=== PATIENT | female | born 1970 | race Caucasian/White ===

== ENCOUNTER → 2016-09-10 | Outpatient (CLI) | payer BC ==
[~2016-09-10] MED LIST: ALPR.25T; ALPR1T; ALPR1T PO; DESV100T PO; DVL500TEC; EST.1TD TOP; HYDR-34 PO; IBP600T1 PO; LEVO750T6 PO; LURA40TA PO; LVT.025T PO; LVT.112T; MELA1TAB20 PO; METR500T PO; MTF500T PO; MULT-608; OMG1KC; ONDA8TAB9 PO; SMT80CT PO
--- NOTE | 2016-09-11 15:44 | Diagnostic Imaging Report ---
Bilateral screening mammogram 2D views with tomosynthesis. The current study was also evaluated with a Computer Aided Detection (CAD) system. INDICATION: Screening. No current complaints stated on the questionnaire. COMPARISON: 02/23/15. FINDINGS: The breasts are composed of heterogeneously dense parenchyma which may decrease mammographic sensitivity. No mass, architectural distortion or suspicious cluster of calcification seen. Allowing for technique and positional differences, no suspicious change is seen. IMPRESSION: No significant change. ACR BI-RADS Category 2: Benign findings. Result letter will be mailed to the patient. Note: At least 10% of breast cancer is not imaged by mammography. Dictated by: Dictated on workstation # [id number]
== END ==
LOC: RAD 10:42
PROVIDERS: ATTEND Obstetrics & Gynecology
DX: Z12.31 Encounter for screening mammogram for malignant neoplasm of breast (principal)
CPT/HCPCS: 77067

== ENCOUNTER → 2017-09-09 | Outpatient (CLI) | payer BC ==
--- NOTE | 2017-09-09 12:16 | Diagnostic Imaging Report ---
PROCEDURE: US Gallbladder. TECHNIQUE: Multiple real-time grayscale images were obtained over the right upper quadrant in various projections. INDICATION: Dyspepsia. COMPARISON: None. FINDINGS: There is diffuse hepatic steatosis. No focal hepatic mass is seen. There is no biliary dilatation. The common bile duct measures about 4 mm. The gallbladder appears unremarkable. The pancreas is not well seen. The right kidney measures about 12 cm in length and appears unremarkable without obstructive change. The inferior pole however is somewhat obscured and not well visualized. There is no ascites or sonographic Davenport's sign. IMPRESSION: 1. Diffuse hepatic steatosis. 2. No additional abnormality is seen. The pancreas and inferior pole of the right kidney are not well seen. Dictated by: Dictated on workstation # [id number]
== END ==
LOC: RAD 10:02
PROVIDERS: ATTEND Nurse Practitioner Family
DX: K76.0 Fatty (change of) liver, not elsewhere classified (principal)
CPT/HCPCS: 76705

== ENCOUNTER → 2018-01-22 | Outpatient (CLI) | payer BC ==
--- NOTE | 2018-01-22 19:40 | Diagnostic Imaging Report ---
INDICATION: Routine screening. Comparison is made with prior mammograms from 09/10/2016 and 02/23/2015. 2-D and 3-D bilateral screening mammography was performed with computer-aided detection (CAD) system. FINDINGS: Both breasts are heterogeneously dense, limiting the sensitivity of mammography. The parenchymal pattern is stable. No mass or malignant-appearing microcalcifications are seen. The axillae are unremarkable. IMPRESSION: No mammographic features suspicious for malignancy are identified. ACR BI-RADS Category 1: Negative. Result letter will be mailed to the patient. Note: At least 10% of breast cancer is not imaged by mammography. Dictated on workstation # [id number]
== END ==
LOC: RAD 10:45
PROVIDERS: ATTEND Obstetrics & Gynecology
DX: Z12.31 Encounter for screening mammogram for malignant neoplasm of breast (principal)
CPT/HCPCS: 77067

== ENCOUNTER 2019-06-20 05:40 | Outpatient (CLI) | payer BC ==
[~2019-06-20] VITALS: Ht 162.6 cm; Wt 79.5 kg
[2019-06-20] MEDS ORDERED: LEVO50TA6 PO (11:33)
[2019-06-20] MEDS ORDERED: ESTR-44 TD (11:36)
[2019-06-20] MEDS ORDERED: ESCI20TA45 PO (11:36)
[2019-06-20] MEDS ORDERED: NEBI5TAB8 PO (11:36)
[2019-06-20] MEDS ORDERED: LITH600C PO (11:36)
[2019-06-20] MEDS ORDERED: CETI10TA21 PO (11:36)
[2019-06-20] MEDS ORDERED: TRZ50T PO (11:36)
== END 2019-06-20 16:14 ==
LOC: PREOP 05:40
PROVIDERS: ATTEND Internal Medicine
DX: Z01.818 Encounter for other preprocedural examination (principal); Z11.59 Encounter for screening for other viral diseases
CPT/HCPCS: 87635

== ENCOUNTER 2019-06-24 06:57 | Day surgery (SDC) | payer BC ==
--- NOTE | 2019-05-02 01:40 | HISTORY AND PHYSICAL ---
DATE OF SERVICE: COLONOSCOPY HISTORY AND PHYSICAL HISTORY OF PRESENT ILLNESS: The patient is a 48-year-old white female referred by Dr. Amy Alvares for screening colonoscopy. She reports positive family history on the maternal side with colon cancer, index case being a grandfather diagnosed in his late 50s and an uncle diagnosed at the age of 70. She reports a longstanding history of predominant diarrhea with bouts of constipation for which IBS has been diagnosed. She rarely takes some Bentyl and has been on no other medication. She also reports that she is lactose intolerance and she does have more bloating with gluten- based foods. She has noted no bright red blood per rectum or melena. Denies any change in weight with intermittent left lower quadrant abdominal pain, relieved with defecation. During the diarrhea phase she will have some urgency and 3 to 5 loose stools, more often in the morning. She has no nocturnal diarrhea. PAST MEDICAL HISTORY: Type 2 diabetes, Tomy's hypothyroidism, hypertension and depression. She reports her depression is in remission. PAST SURGICAL HISTORY: Significant for a right thyroidectomy for benign reasons 10 years ago, tonsillectomy and adenoidectomy as a child. She has had ear tubes and a right tympanoplasty in the past and in 2013 had transvaginal hysterectomy and ovaries were left. 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 She has rare alcohol usage. She has no past cigarette smoking history, but does vape. REVIEW OF SYSTEMS: CONSTITUTIONAL: The patient denies night sweats, chills, fever or change in weight. GASTROINTESTINAL: As noted in the HPI. PULMONARY: She denies any wheezing, cough or shortness of breath. Denies dyspnea on exertion. She denies cough or chest pain. PHYSICAL EXAMINATION: GENERAL: Reveals a pleasant white female in no acute distress. VITAL SIGNS: Blood pressure 128/76, heart rate 72 and regular. HEENT: Unremarkable. Mallampati 2 oropharyngeal configuration. CHEST: Clear to auscultation. CARDIOVASCULAR: Revealed a regular rate and rhythm without murmur, S3 or S4. ABDOMEN: Soft, supple without mass or organomegaly and mild left lower quadrant discomfort to palpation was noted without rebound or guarding. No evidence for distention was noted. The abdomen was soft. Bowel sounds positive. No bruits noted. EXTREMITIES: Reveal no cyanosis, clubbing or edema. ASSESSMENT AND PLAN: The patient will be set up for screening colonoscopy due to history of IBS and likely increase sensitivity. We will perform the test under Diprivan based anesthesia after discussion with the patient. She was concerned about the prep after discussion and so we will have her take Zofran 4 mg half an hour before each split dose. She was advised to abstain from intermittent ibuprofen that she utilizes for at least 48 hours prior to the procedure. She does not take any form of aspirin. Prep instructions were given and questions were answered. I thank you for the referral of this pleasant lady. I set up for colonoscopy on 05/13/2019. Job ID: [id number] DocumentID: [id number] Dictated Date: 04/28/2019 14:31:00 Applications Programmer Analyst Date: 04/28/2019 14:48:54 Dictated By: LOUISE PIKE MD
--- NOTE | 2019-06-23 16:49 | HISTORY AND PHYSICAL ---
DATE OF SERVICE: COLONOSCOPY HISTORY AND PHYSICAL The patient was initially seen on the , but screening colonoscopy her first was put off due to COVID pandemic. This is a followup H and P. There have been no changes in her health. She is undergoing screening colonoscopy at the age of 49 due to strong family history for colon cancer with 2 second-degree relatives with early colon cancer in their early 50's. She has had no bowel habit change and has no history of cardiovascular or pulmonary disease. PHYSICAL EXAMINATION: GENERAL: Reveals a well-appearing white female in no acute distress. CHEST: Clear. VITAL SIGNS: Blood pressure 128/74. CARDIOVASCULAR: Regular rate and rhythm without murmur, S3 or S4. ASSESSMENT AND PLAN: The patient is set up for screening colonoscopy on 06/24/2019. She already had prep instructions and has been on a clear liquid diet today. There are no contraindications proceeding with planned screening colonoscopy. Job ID: [id number] DocumentID: [id number] Dictated Date: 06/23/2019 16:08:22 Freight Inspector Date: 06/23/2019 16:48:24 Dictated By: LOUISE PIKE MD MTDD
[~2019-06-24 06:57] MED LIST changes: +CETI10TA21 PO; +ESCI20TA45 PO; +ESTR-44 TD; +LEVO50TA6 PO; +LITH600C PO; +MIDAZOLAM 2 MG/2 ML (VERSED) VIAL ONE; +NEBI5TAB8 PO; +PROPOFOL INJECTION 50 ML IV ONE; +TRZ50T PO
[2019-06-24] MEDS ORDERED: LACTATED RINGERS 1,000 ML IV ONE (06:59)
--- OUTSIDE RECORDS SUMMARY | 2019-06-24 07:06 | XMS REPORT | Encounter Summary ---
Author Author [facility] Organization [facility] Address Unknown Phone Unavailable Care Team Providers Care Stitcher Feeder Name Role Phone Janneth Garcia RN Unavailable Unavailable Amy Alvares APRN PCP Van Mejia RN Unavailable Unavailable Jose Chaudhary DO Unavailable April Baker MD Unavailable Unavailable Mary Berry DO Unavailable Samantha Sales DO Unavailable Reason for Visit * Reason Comments Bipolar Disorder Encounter Details Care Team Description Date Type Department Alice Harrington DO [address] [place] [address] Bipolar I disorder, current or most rece nt episode hypomanic, in partial remission with anxious distress (HCC) (Primary Dx); Vitamin D deficiency; Gambling disorder, episodic 05/18/2019 Office Visit [facility] [address] [place] [address] Social History Date Tobacco Use Types Packs/Day Years Used Light Tobacco Smoker 0 Smokeless Tobacco: Never Used Comments: E-Cig use, 1.5 mg vials/ Has n ever smoked cigarettes Drinks/Week oz/Week Comments Alcohol Use 0 Standard drinks or equivalent 0.0 occasional, less than 1 drink once a month Yes Sex Assigned at Date Recorded Not on file Industry Job Start Date Occupation Not on file Not on file Not on file Travel End Travel History Travel Start No recent travel history available. Date Recorded COVID-19 Exposure Response 05/18/2019 8:44 AM CDT In the last month, have you been in contact with Ibis ble to assess someone who was confirmed or suspected to have Coronavirus / COVID-19? documented as of this encounter Last Filed Vital Signs Reading Time Taken Comments Vital Sign - - Blood Pressure 80 05/18/2019 9:56 AM CDT Pulse 37.2 C (98.9 F) 05/18/2019 9:56 AM CDT Temperature - - Respiratory Rate - - Oxygen Saturation - - Inhaled Oxygen Concentration 78 kg (172 lb) 05/18/2019 9:56 AM CDT Weight 162.6 cm (5' 4") 05/18/2019 9:56 AM CDT Height 29.52 05/18/2019 9:56 AM CDT Body Mass Index documented in this encounter Functional Status Date of Assessment Functional Status Response 05/18/2019 Does the patient have a hearing impairment: No 05/18/2019 Does the patient have a visual impairment: Yes 05/18/2019 Does the patient have impaired ambulation: No 05/18/2019 Does the patient have an activity of daily living No (ADL) impairment: 05/18/2019 Does the patient have an instrumental activity of No daily living (IADL) impairment: Date of Assessment Cognitive Status Response 05/18/2019 Does the patient have a cognitive impairment: No documented as of this encounter Patient Instructions * Patient Instructions* Alice Harrington DO - 05/18/2019 10:15 AM CDT Below is a summary of the plan discussed during the office visit: ? Continue all medications without change ? Complete another round of high dose Vitamin D supplementation weekly x 12 dose s, then resume OTC Vit D3 2,000 units ? Plan to repeat labs at next visit (BMP, lithium) ? Discuss with primary care regarding need for repeat sleep study, iron studies to address restless legs Return to clinic in 4 months. Please call the clinic to reschedule or cancel ap pointment if something changes. The phone number is [phone]. Please do not hesitate to call the clinic, if you have questions regarding your psychiatric medications or start to develop side effects to medications prescrib ed by your psychiatrist. If you need a medication refill, please call your pharmacy to request refills. In the event of a safety concern or suicidal thoughts, call 911 or go to the [facility] emergency room. National Suicide Prevention Lifeline 142-877-7904 (Talk). [employer] Text Hotline (text 371863). The Compassionate [employer] phone line is a resource for talk support in non-emergency situations (6-880-FDIWLMU). documented in this encounter Progress Notes * Familia Wilson MD - 05/18/2019 10:15 AM CDT ATTESTATION I personally performed the chowdhury portions of the E/M visit, discussed case with re sident and concur with resident documentation of history, physical exam, assessm ent, and treatment plan unless otherwise noted. 48 Year old female with Bipolar Type 1 disorder, Unspecified Anxiety and Nicotin e was seen via TeleHealth Visit. Doing well since last visit. No symptoms of pro blematic mood. Denied any suicidal and homicidal ideations. Denied any delusions and hallucinations. Continue current medications. RTC in 3-4 months Staff name: Familia Wilson MD Date: 05/21/2019 * Alice Harrington DO - 05/18/2019 10:15 AM CDT Obtained patient's verbal consent to treat them and their agreement to [facility] policy and NPP via this telehealth visit during the Coronavirus [facility] Start time: 4:03 pm End time: 4:28 pm Subjective: Psychiatric: Patients states this is the best she has ever felt in 4 to 5 years despite being on this road for 16 years. Lexapro helps her anxiety. No panic att acks, just "normal life stuff". Identifies falling asleep as her biggest issue. Believes RLS also contribues, no longer taking iron. says she snores. Un able to recall any dreams. Must take trazodone in order to sleep which she does not mind doing despite some residual hangover effect in the morning. Without it, sleeps about 5 hours and wakes up ready to go. Trialed melatonin as high as 10 mg in the past. Energy is fine throughout the day except on a break from work s he may doze. 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 Irritability only at work related to [employer] policies. Appetite is good, perhaps too good. Concentration is not great. Patient does not have/use Klonopin other than when she used some to fly (obtain ed from PCP, still has 8 tabs remaining). Spiritually in tune, sometimes experie nces illusions in the corner of her eye, not distressing. Last engaged in gambli ng a couple o fmonths ago. No desire to tracy or intrusive thoughts about it. D enies SI/HI/AVH. Medical: Scheduled for colonoscopy for abdominal pain, diarrhea, bowel issues. Social: Caffeine - one cup of coffee each morning, one diet soda during day. Alc ohol - not typically, a beer every three days recently otherwise once a month. N icotine - vaping, trying to quit (never a smoker), more of a habit and never mckenna led nicotine lozenges. Tried CBD oil in past. Denies other substance uses. 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 She lives in [facility] with her . Objective: clonazePAM (KLONOPIN) 0.5 mg tablet Take one tablet by mouth daily as needed . For severe anxiety ergocalciferol (VITAMIN D) 1,250 mcg (50,000 unit) capsule Take one capsule by mouth every 7 days. Indications: low vitamin D levels escitalopram oxalate (LEXAPRO) 20 mg tablet TAKE 1 AND 1/2 TABLETS BY MOUTH DAILY estradiol(+) (VIVELLE-DOT; ESCLIM; ANA LAURA; ESTRADERM; VIVELLE) 0.1 mg/24 hr p atch Apply 1 Patch to top of skin as directed twice weekly. levothyroxine (SYNTHROID) 50 mcg tablet Take 50 mcg by mouth daily. Indicati ons: HYPOTHYROIDISM lithium carbonate SR (LITHOBID) 300 mg tablet Take four tablets by mouth at bedtime daily. Take with food. melatonin 3 mg tab Take 1 tablet by mouth at bedtime daily. nebivolol (BYSTOLIC) 5 mg tablet Take 5 mg by mouth every morning. blood pre ssure nicotine polacrilex (COMMIT) 2 mg lozenge one lozenge by SEE ADMIN INSTRUCTI ONS route every [address] 1 lozenge inside cheek (side of mouth) as needed. OZEMPIC 0.25 mg or 0.5 mg(2 mg/1.5 mL) injection PEN INJECT .5 SUBCUTANEOUSL Y WEEKLY WITH NEEDLES traZODone (DESYREL) 50 mg tablet Take one tablet by mouth at bedtime as need ed for Sleep. vitamins, multiple tablet Take 1 Tab by mouth daily. Vitals: 05/18/19 0956 Pulse: 80 Temp: 37.2 C (98.9 F) Weight: 78 kg (172 lb) Height: 162.6 cm (64") PainSc: Zero Body mass index is 29.52 kg/m. Physical Exam Vitals signs reviewed. General/Constitutional: 48 y.o. well-appearing, overweight female, wearing casua l attire, and casual grooming, wearing some makeup Eye Contact: good Behavior: cooperative, no PMA/PMR Speech: normal rate, tone, and volume Mood: "best it has been" Affect: euthymic, mood congruent Thought Process: linear, goal oriented Thought Content: denies SI, HI Perception: denies AVH Associations: intact Insight: good Judgement: good Orientation: intact Recent and remote memory: intact Attention span and concentration: intact Cognition: intact Language: Bhutanese, fluent Fund of knowledge/vocabulary: above average Neuro: no appreciable tremor during conversation, holding phone Assessment and Plan: Bipolar 1 disorder Gambling disorder, moderate Nicotine use disorder, mild, in early remission Unspecified anxiety disorder HTN Hypothyroidism -Continue lithium SR 1200 mg qhs - Last level 0.8 on 02/19/19 - Repeat at next visit (6 months) without change or evidence of adverse symptom s -Continue trazodone 25-50mg nightly as needed for insomnia. -Continue Lexapro 30 mg daily for anxiety - Can decrease to 15mg daily if she has another episode of hypomania. -Repeat course of high dose Vitamin D supplementation 50,000 units weekly x 12 w eeks - Patient to resume OTC Vit D3 2,000 units after completion - Repeat level with next set of labs -Discuss with PCP need for updated sleep study to assess for INDIGO/iron panel for RLS -Safety resources printed in AVS Patient discussed with Dr. Wilson who agrees with the above plan. Return to [facility] in 3-4 months. Alice Harrington DO PGY-4, Internal Medicine/Psychiatry Pager: [phone] * Soraida Avila MA - 05/18/2019 10:15 AM CDT Vitals per pt , these were not taken by staff. Pt consented to video visit. Pt v erified name and . Pt stated she understands all the documents that were sent to her and has no questions at this time. * Jinny Aceves - 05/18/2019 10:15 AM CDT Tried calling the patient @ 9:47am no answer. documented in this encounter Plan of Treatment Not on filedocumented as of this encounter Visit Diagnoses Diagnosis Bipolar I disorder, current or most rec ent episode hypomanic, in partial remission with anxious distress (HCC) Vitamin D deficiency Unspecified vitamin D deficiency Gambling disorder, episodic documented in this encounter
--- OUTSIDE RECORDS SUMMARY | 2019-06-24 07:06 | XMS REPORT | Encounter Summary ---
Author Author [facility] Organization [facility] Address Unknown Phone Unavailable Care Team Providers Care Cone Tender Name Role Phone Janneth Garcia RN Unavailable Unavailable Amy Alvares APRN PCP Van Mejia RN Unavailable Unavailable Jose Chaudhary DO Unavailable April Baker MD Unavailable Unavailable Mary Berry DO Unavailable Samantha Sales DO Unavailable Reason for Visit * Reason Comments Medication Refill Encounter Details Care Team Description Date Type Department Altagracia Roche MD [address] [facility] [address] [place] [address] 05/17/2019 Refill [facility] [address] [place] [address] Social History Date Tobacco Use [...] Travel Start No recent travel history available. documented as of this encounter Miscellaneous Notes * Telephone Encounter - [place] Alvarado - 05/17/2019 12:55 PM CDT Patient advised that refill requests have been denied because labs need to be re -drawn. Patient notified that lab draw is not urgent, she can take Vitamin D 2,0 00 units daily until she feels comfortable completing lab work. Patient verbaliz es understanding and appreciative of call. documented in this encounter Plan of Treatment Not on filedocumented as of this encounter Visit Diagnoses Not on filedocumented in this encounter
--- OUTSIDE RECORDS SUMMARY | 2019-06-24 07:06 | XMS REPORT | Encounter Summary ---
Author Author [facility] Organization [facility] Address Unknown Phone Unavailable Care Team Providers Care Senior Instructor Name Role Phone Janneth Garcia RN Unavailable Unavailable Amy Alvares APRN PCP Van Mejia RN Unavailable Unavailable Jose Chaudhary DO Unavailable April Baker MD Unavailable Unavailable Mary Berry DO Unavailable Samantha Sales DO Unavailable Encounter Details Care Team Description Date Type Department 05/18/2019 Travel Social History Date Tobacco Use Types Packs/Day [...] / COVID-19? documented as of this encounter Functional Status Date of Assessment [...] impairment: No documented as of this encounter Plan of Treatment Not on filedocumented as of this encounter Visit Diagnoses Not on filedocumented in this encounter
--- OUTSIDE RECORDS SUMMARY | 2019-06-24 07:06 | XMS REPORT | Clinical Summary ---
Author Author [facility] Organization [facility] Address Unknown Phone Unavailable Care Team Providers Care Referral And Information Aide Name Role Phone Janneth Garcia RN Unavailable Unavailable Amy Alvares APRN PCP Van Mejia RN Unavailable Unavailable Jose Chaudhary DO Unavailable April Baker MD Unavailable Unavailable Mary Berry DO Unavailable Samantha Sales DO Unavailable Source Comments Some departments are not documenting in the electronic medical record. If you d o not see the information that you expected, contact Release of Information in [facility] Health Information Management department at [phone] for further assistan ce in locating additional records.[facility] Allergies Comments Active Allergy Reactions Severity Noted Date Cephalexin UNKNOWN 01/03/2014 Medications End Date Status Medication Sig Dispensed Refills Start Date Active nebivolol (BYSTOLIC) 5 mg Take 5 mg by 0 tablet mouth every morning. blood pressure Active estradiol(+) Apply 1 Patch 0 (VIVELLE-DOT; ESCLIM; to top of ANA LAURA; ESTRADERM; skin as VIVELLE) 0.1 mg/24 hr directed patch twice weekly. Active vitamins, multiple tablet Take 1 Tab by 90 Tab 3 mouth daily. 4 Active levothyroxine (SYNTHROID) Take 50 mcg 0 02/16 50 mcg tabletIndications: by mouth 6 hypothyroidism daily. Indications: HYPOTHYROIDIS M Active melatonin 3 mg tab Take 1 tablet 30 tablet 2 12/12 by mouth at 7 bedtime daily. Active OZEMPIC 0.25 mg or 0.5 INJECT .5 5 01 mg(2 mg/1.5 mL) injection SUBCUTANEOUSL 9 PEN Y WEEKLY WITH NEEDLES Active nicotine polacrilex one lozenge 2 box 3 (COMMIT) 2 mg lozenge by SEE ADMIN 9 INSTRUCTIONS route every [address] 1 lozenge inside cheek (side of mouth) as needed. Active traZODone (DESYREL) 50 mg Take one 90 tablet 3 tablet tablet by 9 mouth at bedtime as needed for Sleep. Active clonazePAM (KLONOPIN) 0.5 Take one 30 tablet 1 mg tabletIndications: tablet by 9 Bipolar I disorder with mouth daily anxious distress (HCC) as needed. For severe anxiety Active escitalopram oxalate TAKE 1 AND 135 tablet 1 02/11 (LEXAPRO) 20 mg tablet 1/2 TABLETS 9 BY MOUTH DAILY Active lithium carbonate SR Take four 120 tablet 3 04/19 (LITHOBID) 300 mg tablet tablets by 0 mouth at bedtime daily. Take with food. Active ergocalciferol (VITAMIN Take one 12 capsule 0 D) 1,250 mcg (50,000 capsule by 0 unit) capsuleIndications: mouth every 7 vitamin D deficiency days. Indications: low vitamin D levels Active Problems Problem Noted Date Nicotine use disorder 05/21/2018 Bipolar I disorder, current or most recent episode hy pomanic, in partial 04/04/2016 remission with anxious distress BMI 30.0-30.9,adult 03/21/2015 Other specified anxiety disorders 01/03/2015 Gambling disorder, episodic 10/13/2014 Encounter for long-term (current) use of medications 10/13/2014 Hypothyroidism 02/17/2014 H/O: hysterectomy 02/17/2014 HTN (hypertension) 02/17/2014 Vitamin D deficiency 02/17/2014 Resolved Problems Problem Noted Date Resolved Date Overweight (BMI 25.0-29.9) 02/17/2014 03/21/2015 Depression 01/03/2014 02/17/2014 Encounters Care Team Description Date Type Specialty Alice Harrington DO Bipolar I disorder, current or most rece nt episode hypomanic, in partial remission with anxious distress (HCC) (Primary Dx); Vitamin D deficiency; Gambling disorder, episodic 05/18/2019 Office Visit Psychiatry 05/18/2019 Travel Altagracia Roche MD 05/17/2019 Refill Psychiatry Altagracia Roche MD 05/16/2019 Refill Psychiatry Latricia Mckinnon MD 04/19/2019 Refill Psychiatry Alice Harrington DO 04/18/2019 Refill Psychiatry from Last 3 Months Family History Medical History Relation Name Comments Anxiety Brother Multiple sclerosis Brother Anxiety Father Depression Father Anxiety Mother Relation Name Status Comments Brother Alive Brother Brother Father Alive Mother Alive Social History Date Tobacco Use Types Packs/Day Years Used Light Tobacco Smoker 0 Smokeless Tobacco: Never Used Tobacco Cessation: Ready to Quit: Yes; C ounseling Given: Yes Comments: E-Cig use, 1.5 mg vials/ Has never smoked cigarettes Drinks/Week oz/Week Comments Alcohol Use 0 Standard drinks or equivalent 0.0 occasional, less than 1 drink once a month Yes Sex Assigned at Date Recorded Not on file Industry Job Start Date Occupation Not on file Not on file Not on file Travel End Travel History Travel Start No recent travel history available. Last Filed Vital Signs Reading Time Taken Comments Vital Sign 117/66 01/27/2019 1:39 PM [facility] Blood Pressure 80 05/18/2019 9:56 AM CDT Pulse 37.2 C (98.9 F) 05/18/2019 9:56 AM CDT Temperature - - Respiratory Rate 96% 01/06/2014 8:00 AM [facility] Oxygen Saturation - - Inhaled Oxygen Concentration 78 kg (172 lb) 05/18/2019 9:56 AM CDT Weight 162.6 cm (5' 4") 05/18/2019 9:56 AM CDT Height 29.52 05/18/2019 9:56 AM CDT Body Mass Index Plan of Treatment Health Maintenance Due Date Last Done Comments HIV SCREENING 10/02/1986 DTAP/TDAP VACCINES (1 - 10/02/1989 Tdap) HEPATITIS C SCREENING 10/02/1989 PHYSICAL (COMPREHENSIVE) 10/02/1989 EXAM CERVICAL CANCER SCREENING 10/02/1992 BREAST CANCER SCREENING 2011 INFLUENZA VACCINE 11/17/2019 Results Not on filefrom Last 3 Months Insurance Type Payer Benefit Subscriber ID Effective Phone Address Plan / Dates Group [facility] [employer] [facility] xxxxxxxxxxxx 2012 PREF CARE -Present BLUE -[id number] Advance Directives Patient [employer]ist Explanation Type Date Recorded Advance Directive/DPOA Date Inactivated Comments Code Status Date Activated 01/09/2014 9:11 PM Full Code 01/04/2014 12:03 AM Provider has discussed Code Status No, discussion no t w/Patient or Family? necessary based on Dx
--- OUTSIDE RECORDS SUMMARY | 2019-06-24 07:07 | XMS REPORT | CCD ---
Author Author Keyana Kenney D.O. 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 Name Role Phone PP Unavailable CCM Unavailable Summary Purpose Interface Exchange Insurance Providers Payer name Policy type / Coverage type Covered libertarian ID Effective Begin Date Effective End Date Blue Cross Blue Shield Blue Cross/Bl ue Shield [id number] 2012 Un known Family History Family History data not found Social History Social History Element Codes Description Effective Dates Marital status Unknown M arried 12/25/2010 Number of children Unknown 2 12/25/2010 Employment Unknown 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 12/25/[address]: [id number] Never smoker 12/25/2010 Allergies, Adverse Reactions, Alerts Substance Reaction Codes Entered Date Inactivated Date Status * NO KNOWN FOOD WIN RGIES Unknown 12/25/2010 No Inactive Date Active * NO KNOWN ENVIRONME NTAL ALLERGIES Unknown 12/25/2010 No Inactive Date Active CEPHALOSPORINS Unknown 12/25/2010 No In active Date Active Past Medical History Illness Codes Condition Status Onset Date Resolved Date DERMATITIS NOS ICD-9: 692.9 Active 07/22/2012 Unknown Abdominal bloating ICD- 9: 787.3 Active 04/27/2012 Unknown ABDOMINAL PAIN ICD-9: 789.00 Active 04/27/2012 Unknown IBS ICD-9: 564.1 Active 04/27/2012 Unknow n ABNORMAL WEIGHT GAIN ICD-9: 783.1 Active 11/27/2011 Unknown MALAISE AND FATIGUE ICD- 9: 780.79 Active 11/27/2011 Unknown ROUTINE MEDICAL EXAM ICD-9: V70.0 Active 11/27/2011 Unknown Left thyroid nodule ICD- 9: 241.0 Active 12/25/2010 Unknown ROUTINE GYNE EXAM ICD-9: V72.31 Active 12/25/2010 Unknown Problems Condition Codes Effectiv e Dates Condition Status DERMATITIS NOS ICD-9: 692.9 07/22/2012 Active Abdominal bloating ICD- 9: 787.3 04/27/2012 Active ABDOMINAL PAIN ICD-9: 789.00 04/27/2012 Active IBS ICD-9: 564.1 04/27/2012 Active ABNORMAL WEIGHT GAIN ICD-9: 783.1 11/27/2011 Active MALAISE AND FATIGUE ICD- 9: 780.79 11/27/2011 Active ROUTINE MEDICAL EXAM ICD-9: V70.0 11/27/2011 Active Left thyroid nodule ICD- 9: 241.0 12/25/2010 Active ROUTINE GYNE EXAM ICD-9: V72.31 12/25/2010 Active Medications Medication Codes Instruc tions Start Date Stop Date Sta tus Fill Instructions Bentyl 20 mg tablet RxNorm: 389617 1 Tablet(s) PO QHS 04/27/2012 05/26/2012 Inactive Aviane 0.1 mg-20 mcg Tab RxNorm: 741424 1 Tablet(s) PO QD 12/25/2010 11/26/2011 Inactive nystatin-triamcinolo ne 100,000 unit/g-0.1 % Topical Cream RxNorm: 6328441 Application TOP BID to rash No Start Date Active alprazolam 1 mg Tab RxNorm: 762446 1 Tablet(s) PO TID as needed No Start Date Active propranolol 10 mg Tab RxNorm: 027005 1 Tablet(s) PO TID as needed for anxiety No Start Date Active lithium carbonate 30 0 mg Tab RxNorm: 745052 2 Tablet(s) PO QD No Start Date Active Pristiq 100 mg 24 hr Tab RxNorm: 204051 1 Tablet(s) PO QD No Start Date Active Abilify 2 mg tablet RxNorm: 388041 1 Tablet(s) PO QD No Start Date Active Artane 5 mg Tab RxNorm: 489082 1/2 Tablet(s) PO BID No Start Date 11/26/2011 Inactive Aviane 0.1 mg-20 mcg Tab RxNorm: 014349 1 Tablet(s) PO QD No Start Date 12/24/2010 Inactive Ritalin 20 mg Tab RxNorm: 5858129 1 Tablet(s) PO BID morning and noon No Start Date 11/26/2011 Inactive Abilify 2 mg tablet RxNorm: 892942 02/17 Tablet(s) PO QD No Start Date 04/26/2012 Inactive Abilify 5 mg Tab RxNorm: 364171 02/17 Tablet(s) PO QD No Start Date 11/26/2011 Inactive Medication Administered No Medication Administered data Immunizations No Immunization data Assessments Condition Codes Effectiv e Dates DERMATITIS NOS ICD-9: 692.9 07/22/2012 FLATUL/ERUCTAT/GAS PAIN ICD-9: 787.3 07/22/2012 MALAISE AND FATIGUE ICD-9: 780.79 07/22/2012 IBS ICD-9: 564.1 013 ABDOMINAL PAIN ICD-9: 789.00 04/27/2012 ROUTINE GYNE EXAM ICD-9: V72.31 11/27/2011 ABNORMAL WEIGHT GAIN ICD-9: 783.1 11/27/2011 ROUTINE MEDICAL EXAM ICD-9: V70.0 11/27/2011 Left thyroid nodule ICD-9: 241.0 12/25/2010 Reason For Visit Reason For Visit Effective Dates Notes follow up 07/22/2012 bow el constipation 04/27/2012 Started gluten free diet the last week well woman exam (40-65 years) 11/27/2011 baseline mammogram has been done with follow up breast ultrasounds--history of benign left cyst well woman exam (18-39 years) 12/25/2010 baseline mammogram 2 years ago, hx of left breast cyst Results No Results data Review of Systems System Result Effective Dates Gastrointestinal abdominal pain 07/22/2012 Gastrointestinal gas and bloating 07/22/2012 Gastrointestinal abdominal pain 04/27/2012 Gastrointestinal gas and bloating 04/27/2012 Gastrointestinal constipation 04/27/2012 Gastrointestinal diarrhea 04/27/2012 Constitutional fatigue 1 Constitutional weight gain/obesity 11/27/2011 Ears/Nose/Throat/Neck sinus congestion 11/27/2011 Neurologic dizziness 12/2011 Cardiovascular No arrhythmia 11/27/2011 Cardiovascular No chest pain/pressure 11/27/2011 Cardiovascular No edema 11/27/2011 Cardiovascular No exercise intolerance 11/27/2011 Cardiovascular No orthopnea 11/27/2011 Endocrine No goiter 11/16 Endocrine No hyperglycemia 11/27/2011 Endocrine No hypoglycemia 11/27/2011 Neurologic headache 11/16 Cardiovascular No palpitations 11/27/2011 Respiratory No asthma Respiratory No cough 12/2011 Respiratory No dyspnea 1 Respiratory No pleuritic pain 11/27/2011 Respiratory No productive sputum 11/27/2011 Respiratory No wheezing 11/27/2011 Gastrointestinal No hemorrhoids 11/27/2011 Gastrointestinal No hepatitis 11/27/2011 Gastrointestinal No abdominal pain 11/27/2011 Gastrointestinal No constipation 11/27/2011 Gastrointestinal No diarrhea 11/27/2011 Gastrointestinal No gastroesophageal reflu x 11/27/2011 Gastrointestinal No melena 11/27/2011 Gastrointestinal No nausea 11/27/2011 Gastrointestinal No vomiting 11/27/2011 Genitourinary/Nephrology No dysuria 11/27/2011 Genitourinary/Nephrology No nocturia 11/27/2011 Genitourinary/Nephrology No urinary incontinence 11/27/2011 Musculoskeletal No muscle weakness 11/27/2011 Musculoskeletal No myalgias 11/27/2011 Musculoskeletal No stiffness 11/27/2011 Musculoskeletal No swelling 11/27/2011 Dermatologic No rash 12/2011 Dermatologic No scar 12/2011 Psychiatric No anxiety 1 Psychiatric No depression 11/27/2011 Constitutional No fatigue 12/25/2010 Constitutional weight gain/obesity 12/25/2010 Cardiovascular No arrhythmia 12/25/2010 Cardiovascular No chest pain/pressure 12/25/2010 Cardiovascular No edema 12/25/2010 Cardiovascular No exercise intolerance 12/25/2010 Cardiovascular No orthopnea 12/25/2010 Cardiovascular No palpitations 12/25/2010 Respiratory No asthma Neurologic No dizziness 12/25/2010 Neurologic No headache 1 02/24/2010 Neurologic No neck pain 12/25/2010 Neurologic No syncope Psychiatric No anxiety 1 02/24/2010 Psychiatric No depression 12/25/2010 Endocrine No goiter 11/0 10/2010 Respiratory No pleuritic pain 12/25/2010 Respiratory No productive sputum 12/25/2010 Respiratory No cough 10/2010 Endocrine No hyperglycemia 12/25/2010 Endocrine No hypoglycemia 12/25/2010 Endocrine thyroid nodule 12/25/2010 Respiratory No dyspnea 1 02/24/2010 Respiratory No wheezing 12/25/2010 Gastrointestinal No hemorrhoids 12/25/2010 Gastrointestinal No hepatitis 12/25/2010 Gastrointestinal No abdominal pain 12/25/2010 Gastrointestinal No constipation 12/25/2010 Gastrointestinal No diarrhea 12/25/2010 Gastrointestinal No gastroesophageal reflu x 12/25/2010 Gastrointestinal No melena 12/25/2010 Gastrointestinal No nausea 12/25/2010 Gastrointestinal No vomiting 12/25/2010 Genitourinary/Nephrology No dysuria 12/25/2010 Genitourinary/Nephrology No nocturia 12/25/2010 Genitourinary/Nephrology No urinary incontinence 12/25/2010 Musculoskeletal No muscle weakness 12/25/2010 Musculoskeletal No myalgias 12/25/2010 Musculoskeletal No stiffness 12/25/2010 Musculoskeletal No swelling 12/25/2010 Dermatologic No rash 10/2010 Dermatologic No scar 10/2010 Physical Exam Exam Name System Name It em Name Status Result Effective Dates Notes Full Exam - General Constitutional general appearance Overall: well nourished 07/22/2012 None Full Exam - General Constitutional general appearance Overall: well developed 07/22/2012 None Full Exam - General Constitutional general appearance Overall: in no acute distress 07/22/2012 None Full Exam - General Neurologic mental status Overall: alert 3 None Full Exam - General Neurologic mental status Overall: oriented 07/22/2012 None Full Exam - General Psychiatric mood and affect Overall: normal mood and affect 07/22/2012 None Full Exam - General Integument inspection of skin Location: neck 07/22/2012 right neck with large brownish patch Full Exam - General Respiratory auscultation Overall: breath sounds clear bilater ally 07/22/2012 None Full Exam - General Cardiovascular auscultation of heart Overall: regular rate 07/22/2012 None Full Exam - General Cardiovascular auscultation of heart Overall: normal heart sounds 07/22/2012 None Full Exam - General Cardiovascular extremities Overall: no clubbing 07/22/2012 None Full Exam - General Cardiovascular extremities Overall: No edema 07/22/2012 None Full Exam - General Cardiovascular extremities Overall: No cyanosis 07/22/2012 None Full Exam - General Abdomen abdominal exam Overall: no masses 07/22/2012 None Full Exam - General Abdomen abdominal exam Overall: no tenderness 07/22/2012 None Full Exam - General Abdomen abdominal exam Overall: normal bowel sounds 07/22/2012 None Full Exam - General Abdomen abdominal exam Overall: soft 07/22/2012 None Full Exam - General Neck inspection of neck Overall: normal size 07/22/2012 None Full Exam - General Neck inspection of neck Overall: no masses 07/22/2012 None Full Exam - General Constitutional general appearance Overall: well nourished 04/27/2012 None Full Exam - General Constitutional general appearance Overall: well developed 04/27/2012 None Full Exam - General Constitutional general appearance Overall: in no acute distress 04/27/2012 None Full Exam - General Neurologic mental status Overall: alert 3 None Full Exam - General Neurologic mental status Overall: oriented 04/27/2012 None Full Exam - General Psychiatric mood and affect Overall: normal mood and affect 04/27/2012 None Full Exam - General Abdomen abdominal exam Overall: no masses 04/27/2012 None Full Exam - General Abdomen abdominal exam Overall: normal bowel sounds 04/27/2012 None Full Exam - General Abdomen abdominal exam Overall: soft 04/27/2012 None Full Exam - General Abdomen abdominal exam Epigastric: tender to palpation 04/27/2012 None Full Exam - General Abdomen abdominal exam Left upper quadrant: tender to palpa tion 04/27/2012 None Full Exam - General Abdomen abdominal exam Left lower quadrant: tender to palpa tion 04/27/2012 None Full Exam - General Abdomen abdominal exam Right upper quadrant: tender to palp ation 04/27/2012 None Full Exam - General Abdomen abdominal exam Right lower quadrant: tender to palp ation 04/27/2012 None Full Exam - General Respiratory auscultation Overall: breath sounds clear bilater ally 04/27/2012 None Full Exam - General Cardiovascular auscultation of heart Overall: regular rate 04/27/2012 None Full Exam - General Cardiovascular auscultation of heart Overall: normal heart sounds 04/27/2012 None Full Exam - General Constitutional general appearance Overall: well nourished 11/27/2011 None Full Exam - General Constitutional general appearance Overall: well developed 11/27/2011 None Full Exam - General Constitutional general appearance Overall: in no acute distress 11/27/2011 None Full Exam - General Neurologic mental status Overall: alert 2 None Full Exam - General Neurologic mental status Overall: oriented 11/27/2011 None Full Exam - General Psychiatric mood and affect Overall: normal mood and affect 11/27/2011 None Full Exam - General Respiratory auscultation Overall: breath sounds clear bilater ally 11/27/2011 None Full Exam - General Cardiovascular auscultation of heart Overall: regular rate 11/27/2011 None Full Exam - General Cardiovascular auscultation of heart Overall: normal heart sounds 11/27/2011 None Full Exam - General Cardiovascular auscultation of heart Overall: no murmurs 11/27/2011 None Full Exam - General Abdomen abdominal exam Overall: no masses 11/27/2011 None Full Exam - General Abdomen abdominal exam Overall: no tenderness 11/27/2011 None Full Exam - General Abdomen abdominal exam Overall: normal bowel sounds 11/27/2011 None Full Exam - General Abdomen abdominal exam Overall: soft 11/27/2011 None Full Exam - General Genitourinary uterus Overall: normal size 11/27/2011 None Full Exam - General Genitourinary cervix Overall: no discharge 11/27/2011 None Full Exam - General Genitourinary labia and vagina Overall: normal hair distribution 11/27/2011 None Full Exam - General Genitourinary labia and vagina Overall: no lesions 11/27/2011 None Full Exam - General Genitourinary adnexa/parametria Overall: no tenderness 11/27/2011 None Full Exam - General Chest/Breast breast and axillae palpation Overall: breasts non- tender 11/27/2011 None Full Exam - General Chest/Breast breast and axillae palpation Overall: no masses 11/27/2011 None Full Exam - General Chest/Breast breast and axillae palpation Overall: axillae non- tender 11/27/2011 None Full Exam - General Chest/Breast breast and axillae palpation Overall: no nipple discharge 11/27/2011 None Full Exam - General Ears/Nose/Throat otoscopic exam Overall: external auditory canals clear 11/27/2011 None Full Exam - General Ears/Nose/Throat otoscopic exam Left tympanic membrane: air- fluid level 11/27/2011 None Full Exam - General Ears/Nose/Throat otoscopic exam Right tympanic membrane: air- fluid level 11/27/2011 None Full Exam - General Ears/Nose/Throat internal nose Overall: bilateral nasal cavities clear 11/27/2011 None Full Exam - General Ears/Nose/Throat oral cavity/pharynx/larynx Overall: oral mucosa clear 11/27/2011 None Full Exam - General Constitutional general appearance Overall: in no acute distress 12/25/2010 None Full Exam - General Constitutional general appearance Overall: well developed 12/25/2010 None Full Exam - General Constitutional general appearance Overall: well nourished 12/25/2010 None Full Exam - General Neurologic mental status Overall: alert 1 None Full Exam - General Neurologic mental status Overall: oriented 12/25/2010 None Full Exam - General Psychiatric mood and affect Overall: normal mood and affect 12/25/2010 None Full Exam - General Ears/Nose/Throat otoscopic exam Overall: external auditory canals clear 12/25/2010 None Full Exam - General Ears/Nose/Throat otoscopic exam Overall: tympanic membranes clear 12/25/2010 None Full Exam - General Ears/Nose/Throat internal nose Overall: bilateral nasal cavities clear 12/25/2010 None Full Exam - General Ears/Nose/Throat oral cavity/pharynx/larynx Overall: oral mucosa clear 12/25/2010 None Full Exam - General Neck inspection of neck Overall: normal size 12/25/2010 None Full Exam - General Neck inspection of neck Overall: no masses 12/25/2010 None Full Exam - General Respiratory auscultation Right upper lung field: a normal exa m 12/25/2010 None Full Exam - General Respiratory auscultation Right middle lung field: a normal ex am 12/25/2010 None Full Exam - General Respiratory auscultation Right lower lung field: a normal exa m 12/25/2010 None Full Exam - General Respiratory auscultation Left lower lung field: a normal exam 12/25/2010 None Full Exam - General Respiratory auscultation Overall: breath sounds clear bilater ally 12/25/2010 None Full Exam - General Respiratory auscultation Left upper lung field: a normal exam 12/25/2010 None Full Exam - General Respiratory auscultation Diffuse: a normal exam 12/25/2010 None Full Exam - General Cardiovascular auscultation of heart Overall: no murmurs 12/25/2010 None Full Exam - General Cardiovascular auscultation of heart Overall: regular rate 12/25/2010 None Full Exam - General Cardiovascular auscultation of heart Overall: normal heart sounds 12/25/2010 None Full Exam - General Cardiovascular auscultation of heart S1: a normal exam 12/25/2010 None Full Exam - General Cardiovascular auscultation of heart S2: a normal exam 12/25/2010 None Full Exam - General Cardiovascular auscultation of heart Rhythm: regular rhythm 12/25/2010 None Full Exam - General Cardiovascular auscultation of heart Rate: regular rate 12/25/2010 None Full Exam - General Cardiovascular extremities Overall: no clubbing 12/25/2010 None Full Exam - General Cardiovascular extremities Overall: No edema 12/25/2010 None Full Exam - General Cardiovascular extremities Overall: No cyanosis 12/25/2010 None Full Exam - General Abdomen abdominal exam Overall: no masses 12/25/2010 None Full Exam - General Abdomen abdominal exam Overall: no tenderness 12/25/2010 None Full Exam - General Abdomen abdominal exam Overall: normal bowel sounds 12/25/2010 None Full Exam - General Abdomen abdominal exam Overall: soft 12/25/2010 None Full Exam - General Chest/Breast breast and axillae palpation Overall: breasts non- tender 12/25/2010 None Full Exam - General Chest/Breast breast and axillae palpation Overall: no masses 12/25/2010 None Full Exam - General Chest/Breast breast and axillae palpation Overall: axillae non- tender 12/25/2010 None Full Exam - General Chest/Breast breast and axillae palpation Overall: no nipple discharge 12/25/2010 None Full Exam - General Genitourinary uterus Overall: normal size 12/25/2010 None Full Exam - General Genitourinary cervix Overall: no discharge 12/25/2010 None Full Exam - General Genitourinary labia and vagina Overall: normal hair distribution 12/25/2010 None Full Exam - General Genitourinary labia and vagina Overall: no lesions 12/25/2010 None Full Exam - General Genitourinary adnexa/parametria Overall: no tenderness 12/25/2010 None Full Exam - General Integument inspection of skin Overall: no rash, lesions 12/25/2010 None Procedures Procedure Codes Date SPECIMEN HANDLING OF FICE-LAB CPT-4: 55502 12/25/2010 Vital Signs Date Vital 07/22/2012 Blood Pressure 1: 148/96 Code: 8480-6 BMI: 30.9 Code: 50962-2 Height: 5'4" Respiratory Rate: 80 bpm Temperature: 36.5 (C ) / 97.7 (F) Weight: 180 lbs 2 oz 04/27/2012 Blood Pressure 1: 134/86 Code: 8480-6 BMI: 30.4 Code: 12997-9 Heart Rate 1: 76 bpm Height: 5'4" Respiratory Rate: 20 bpm Temperature: 36.6 (C ) / 97.8 (F) Weight: 177 lbs 11/27/2011 Blood Pressure 1: 128/82 Code: 8480-6 BMI: 29.0 Code: 67936-8 Heart Rate 1: 84 bpm Height: 5'4" Respiratory Rate: 20 bpm Temperature: 36.7 (C ) / 98.0 (F) Weight: 169 lbs 12/25/2010 Blood Pressure 1: 116/82 Code: 8480-6 BMI: 27.5 Code: 75339-6 Heart Rate 1: 84 bpm Height: 5'4" Respiratory Rate: 20 bpm Temperature: 37.3 (C ) / 99.1 (F) Weight: 160 lbs Functional Status No Functional Status data History of Present Illness Symptom Name Status Resu lt Effective Date Notes abdominal pain Location diffusely 07/22/2012 None abdominal pain Quality c hronic 07/22/2012 None abdominal pain Quality c onstant 07/22/2012 None gas and bloating Location diffusely 07/22/2012 None gas and bloating Onset and Resolution ongoing 07/22/2012 None rash Quality intermittent 07/22/2012 None rash Onset and Resolution ongoing 07/22/2012 None rash Color hyperpigmented 07/22/2012 comes on every summer/June--wonders if au toimmune lymph node enlargement/mass Quality tender 07/22/2012 None lymph node enlargement/mass Quality acute 07/22/2012 None constipation Quality thompson d/painful 04/27/2012 None constipation Quality chaz ly stools 04/27/2012 None constipation Quality int ermittent diarrhea 04/27/2012 None abdominal pain Location diffusely 04/27/2012 None gas and bloating Location diffusely 04/27/2012 None gas and bloating Quality intermittent 04/27/2012 None well woman exam (40-65 years) Pap Smear last normal performed on 12/201011/27/2011 None well woman exam (40-65 years) Pap Smear normal results 11/27/2011 None well woman exam (40-65 years) Menstr ual History last menstrual period 1 week ago 12/2011 None well woman exam (40-65 years) Menstr ual History irregular menses 11/27/2011 Menstrating every two to three weeks well woman exam (40-65 years) Contro l none 11/27/2011 None dizziness Quality sense of room spinning 11/27/2011 None weight gain/obesity Location globally 11/27/2011 None weight gain/obesity Onset and Resolution ongoing 11/27/2011 None headache Quality intermi ttent 11/27/2011 None headache Quality improvi ng 11/27/2011 since stopped pill well woman exam (18-39 years) Pap Smear last normal performed on 02-14-09 12/25/2010 None well woman exam (18-39 years) Menstr ual History last menstrual period June 201012/25 None well woman exam (18-39 years) Contro l oral contraceptives 12/25/2010 None weight gain/obesity Location globally 12/25/2010 trying low carb diet and exercise Advance Directives No Advance Directive data Encounters Encounter Performer Loca tion Codes Date ([id number]) OFFICE/OUTPA TIENT VISIT EST Diagnosis: IBS[ICD9: 564.1] Diagnosis: FLATUL/ERUCTAT/GAS PAIN[ICD9: 787.3] Diagnosis: DERMATITIS NOS[ICD9: 692.9] Diagnosis: MALAISE AND FATIGUE[ICD9: 780.79] Renu ENGLAND [employer] CPT-4: 57066 07/22/2012 ([id number]) OFFICE/OUTPA TIENT VISIT EST Diagnosis: ABDOMINAL PAIN[ICD9: 789.00] Diagnosis: Abdominal bloating[ICD9: 787.3] Diagnosis: IBS[ICD9: 564.1] Renu [employer] CPT-4: 43610 04/27/2012 ([id number]) PREV VISIT E ST AGE 40-64 Diagnosis: ROUTINE GYNE EXAM[ICD9: V72.31] Diagnosis: ROUTINE MEDICAL EXAM[ICD9: V70.0] Diagnosis: MALAISE AND FATIGUE[ICD9: 780.79] Diagnosis: ABNORMAL WEIGHT GAIN[ICD9: 783.1] Renu ENGLAND [employer] CPT-4: 71572 11/27/2011 ([id number]) SPECIMEN ROBSON THACKER Diagnosis: [ICD9: ] Diagnosis: [ICD9: ] Diagnosis: [ICD9: ] Diagnosis: [ICD9: ] Renu King [facility] [employer] CPT-4: 59364 11/27/2011 PREV VISIT EST AGE 1 8-39 Diagnosis: ROUTINE GYNE EXAM[ICD9: V72.31] Diagnosis: Left thyroid nodule[ICD9: 241.0] Renu KENNEY DO [facility] CPT-4: 03797 12/25/2010 Plan of Care Planned Activity Notes C odes Status Date Visit Plan: Check CBC, TSH, Free T4 , Lipids, CMP, THADDEUS, CRP Trial of Linzesse at 145mcg Selsun Blue washes and topical nystatin/TAC cream Call in 1mo on Lizesse 07/22/2012 Appointment: Renu Kenney WPtel: [address] [place] [address] FOLLOW UP 07/22/2012 Patient Education: Patient Medication Summary Completed 07/22/2012 Visit Plan: Continue gluten free di et Continue probiotic Add bentyl Discussed daily miralax Discussed GI evalution Call in 2wks 04/27/2012 Appointment: Renu Kenney WPtel: [address] [place] [address] ACUTE ILLNESS 04/27/2012 Patient Education: Patient Medication Summary Completed 04/27/2012 Visit Plan: Pap Done Mammo ordered Check fasting lab Trial of nasonex 11/27/2011 Appointment: Renu Kenney WPtel: [address] [place] [address] ACUTE ILLNESS 11/27/2011 Patient Education: Patient Medication Summary Completed 11/27/2011 Visit Plan: Pap Done Mammo at age 5 0 Pt having lab checked every 4mos with psych Check thyroid US Long discussion about diet and exercise 12/25/2010 Appointment: Renu Kenney WPtel: [address] [place] [address] US PAP 12/25/2010 Patient Education: Patient Medication Summary Completed 12/25/2010 Instructions Comment . Pap Done Mammo ordered Check fasting lab Trial of nasonex . Check CBC, TSH, Fr ee T4, Lipids, CMP, THADDEUS, CRP Trial of Linzesse at 145mcg Selsun Blue washes and topical nystatin/TAC cream Call in 1mo on Lizesse . Continue gluten fr ee diet Continue probiotic Add bentyl Discussed daily miralax Discussed GI evalution Call in 2wks . Pap Done Mammo at age 41 Pt having lab checked every 4mos with psych Check thyroid US Long discussion about diet and exercise
--- OUTSIDE RECORDS SUMMARY | 2019-06-24 07:07 | XMS REPORT | Encounter Summary ---
Author Author [facility] Organization [facility] Address Unknown Phone Unavailable Care Team Providers Care Label Stitcher Name Role Phone Janneth Garcia RN Unavailable Unavailable Amy Alvares APRN PCP Van Mejia RN Unavailable Unavailable Jose Chaudhary DO Unavailable April Baker MD Unavailable Unavailable Mary Berry DO Unavailable Samantha Sales DO Unavailable Reason for Visit * Reason Comments Bipolar Disorder Encounter Details Care Team Description Date Type Department Latricia Mckinnon MD [address] [place] [address] Bipolar I disorder, current or most rece nt episode hypomanic, in partial remission with anxious distress (HCC) (Primary Dx); Gambling disorder, episodic; Nicotine use disorder 01/27/[address] [facility] [address] [facility] [address] [place] [address] Social History Date Tobacco Use [...] history available. documented as of this encounter Last Filed Vital Signs Reading Time Taken Comments Vital Sign 117/66 01/27/2019 1:39 PM STEEL BOX TOE INSERTER Blood Pressure 67 01/27/2019 1:39 PM STEEL BOX TOE INSERTER Pulse - - Temperature - - Respiratory Rate - - Oxygen Saturation - - Inhaled Oxygen Concentration 79.8 kg (176 lb) 01/27/2019 1:39 PM STEEL BOX TOE INSERTER Weight 163.8 cm (5' 4.5") 01/27/2019 1:39 PM STEEL BOX TOE INSERTER Height 29.74 01/27/2019 1:39 PM STEEL BOX TOE INSERTER Body Mass Index documented in this encounter Patient Instructions * Patient Instructions* Latricia Mckinnon MD - 01/27/2019 1:30 PM STEEL BOX TOE INSERTER [email or web address] If you have an episode of hypomania, you can decrease lexapro to 15mg or stop it completely (may want to taper over a few days mto avoid withdrawal effects). Ad ditionally, I recommend taking the higher dose of trazodone during hypomanic per iods to help maintain sleep cycle and avoid worsening of mood episode. L BOX TOE INSERTER documented in this encounter Progress Notes * Vnaessa Huber MD - 01/27/2019 1:30 PM STEEL BOX TOE INSERTER I saw & examined the patient at time of visit. Reviewed the notes and discussed with resident. I personally performed the chowdhury portions of the E/M visit, have discussed the patient with and concur with resident documentation of history, mental status exam, assessment, and treatment plan. L BOX TOE INSERTER * Latricia Mckinnon MD - 01/27/2019 1:30 PM STEEL BOX TOE INSERTER Subjective: Pt is a 47yo female with a history of bipolar I disorder, unspecified anxiety di sorder, and gambling disorder who presents to clinic for follow up. Last seen 08/16/18 and pt was continued on naltrexone, lithium, lexapro, and trazodone. Pt reports that things have been going well for the most part. She noticed that 1.5 months ago, she was slightly hypomanic. She was sleeping a little less than usual and having a lot of energy. Her told her she seemed like she was i n a really good mood. She denies any impulsive behaviors or shopping sprees. She thinks she was more talkative and cheerful than usual but no one commented on h er talkativeness. In the last few weeks, mood has been lower but now seems to be back to baseline. She has been sleeping well with trazodone. She feels a little groggy in the morning sometimes. Other times she feels totally fine. She is goi ng to decrease the trazodone back to a half pill. She has been sick with a cold 4 times since June and wonders if it contributed to some of her mood instability. She endorses some anxiety but does not think it is interfering with functioning. She reports she has not used clonazepam in several months. The last time she wa nted it was when she was flying. This has been a recurrent problem for her. She reports concentration is "not great." She denies making mistakes at work but her co-workers have to remind her to do things (like send a sample to the lab) prob ably on a weekly basis. She reports feeling "scattered." She starts tasks and th en moves on to something gelse without finishing the first. She eventually comes back to what she started with and reports she is "functional" overall. Denies S I, HI, AH, VH, paranoia. She states she has been doing better with gambling. She went to the [employer] [facility] since last visit. Altogether, she has spent about $300. She still has craving s to tracy but is able to talk herself out of it most of the time. She reports she stopped naltrexone about 1.5-2 months after last appointment because it make s her feel tired. She does not think it helped with cravings but may have decre ased the gratification she gets from gambling. 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 She lives in [place] [facility] with her . She reports she has been v aping and has cut back to 0mg of nicotine. Drinks one alcoholic drink per occas ion, less than once per week. Denies drug use. Medical history reviewed, no new issues. Family history reviewed, no updates. Objective: clonazePAM (KLONOPIN) 0.5 mg tablet Take one tablet by mouth daily as needed . For severe anxiety escitalopram oxalate (LEXAPRO) 20 mg tablet Take 1.5 tablets by mouth daily. estradiol(+) (VIVELLE-DOT; ESCLIM; ANA LAURA; ESTRADERM; VIVELLE) [...] 1 tablet by mouth at bedtime daily. naltrexone (DEPADE) 50 mg tablet Take one tablet by mouth at bedtime daily. nebivolol [...] at bedtime as need ed for Sleep. VITAMIN D 50,000 unit capsule TAKE 1 CAPSULE BY MOUTH EVERY 7 DAYS vitamins, multiple tablet Take 1 Tab by mouth daily. Vitals: 01/27/19 1339 BP: 117/66 Pulse: 67 Weight: 79.8 kg (176 lb) Height: 163.8 cm (64.5") Body mass index is 29.74 kg/m. Physical Exam Vitals signs reviewed. Psychiatric: Comments: General/Constitutional: well-appearing, overweight female, wearing casual attire, good hygiene, good grooming, wearing makeup Eye Contact: good Behavior: cooperative, no PMA/PMR Speech: normal rate, tone, and volume Mood: "well for the most part" Affect: euthymic, mood congruent Thought Process: linear, goal oriented Thought Content: denies SI, HI Perception: denies AVH Associations: intact Insight: good Judgement: fair to good Orientation: intact Recent and remote memory: intact Attention span and concentration: intact Cognition: intact Language: Maldivian, fluent Fund of knowledge/vocabulary: above average Gait: normal gait Neuro: no tremor Assessment and Plan: Bipolar 1 disorder Gambling disorder, moderate Nicotine use disorder, mild, in early remission Unspecified anxiety disorder HTN Hypothyroidism Patient is a 48-year-old female with bipolar 1 disorder, gambling disorder, hypo thyroidism, and hypertension who presents to clinic for routine follow-up. -Stop naltrexone given poor tolerability and lack of perceived benefit -Encouraged participation in support group or therapy for gambling addiction. Di scussed getting herself banned from the casino [place] her [place]. -Continue lithium SR 1200 mg qhs. Check level at next appt. -Continue trazodone 25-50mg nightly as needed for insomnia. -Continue Lexapro 30 mg daily for anxiety. Can decrease to 15mg daily if she has another episode of hypomania. Patient discussed with Dr. Huber who agrees with the above plan. Return to clinic in 6 months. Latricia Mckinnon MD Internal Medicine/Psychiatry PGY-5 Pager [phone] L BOX TOE INSERTER documented in this encounter Plan of Treatment Not on filedocumented as of this encounter Visit Diagnoses Diagnosis Bipolar I disorder, current or most rec ent episode hypomanic, in partial remission with anxious distress (HCC) Gambling disorder, episodic Nicotine use disorder Tobacco use disorder documented in this encounter
--- OUTSIDE RECORDS SUMMARY | 2019-06-24 07:07 | XMS REPORT | Encounter Summary ---
Author Author [facility] Organization [facility] Address Unknown Phone Unavailable Care Team Providers Care Ict Help Desk Officer Name Role Phone Janneth Garcia RN Unavailable Unavailable Amy Alvares APRN PCP Van Mejia RN Unavailable Unavailable Jose Chaudhary DO Unavailable April Baker MD Unavailable Unavailable Mary Berry DO Unavailable Samantha Sales DO Unavailable Reason for Visit * Reason Comments Medication Refill Encounter Details Care Team Description Date Type Department Altagracia Roche MD [address] [facility] [address] [place] [address] Vitamin D deficiency (Primary Dx) 02/11/2019 Refill [facility] [address] [place] [address] Social History Date Tobacco Use [...] * Telephone Encounter - Africa Alvarado - 02/17/2019 8:58 AM ASSISTANT MANAGER PT Ambulatory lab order placed by provider printed and placed in outgoing mail. STANT MANAGER PT * Telephone Encounter - Africa Alvarado - 02/11/2019 4:16 PM ASSISTANT MANAGER PT Patient notified that she needs to have Vitamin B12 collected. Patient prefers l abs be collected closer to home. Requesting that Dr. Mckinnon order the labs and t hey can be sent to her home. Confirmed address on file is correct. STANT MANAGER PT documented in this encounter Plan of Treatment Order Schedule Name Type Priority Associated Diag noses Expected: 02/15/2019, Expires: 0 25-OH VITAMIN D (D2 + D3) Lab Routine Vandana min D deficiency documented as of this encounter Visit Diagnoses Diagnosis Vitamin D deficiency Unspecified vitamin D deficiency documented in this encounter
--- OUTSIDE RECORDS SUMMARY | 2019-06-24 07:07 | XMS REPORT | Encounter Summary ---
Author Author [facility] Organization [facility] Address Unknown Phone Unavailable Care Team Providers Care Locomotive Mechanic Apprentice Name Role Phone Janneth Garcia RN Unavailable Unavailable Amy Alvares APRN PCP Van Mejia RN Unavailable Unavailable Jose Chaudhary DO Unavailable April Baker MD Unavailable Unavailable Mary Berry DO Unavailable Samantha Sales DO Unavailable Reason for Visit * Reason Comments Medication Refill Encounter Details Care Team Description Date Type Department Latricia Mckinnon MD [address] [place] [address] 04/19/2019 Refill [facility] [address] [facility] [address] [place] [address] Social History Date Tobacco Use [...] encounter Miscellaneous Notes * Telephone Encounter - Ashley Toledo LPN - 04/19/2019 2:56 PM INVESTOR RELATIONS ANALYST This is a duplicate script. Script currently pending approval on 04/19/19 by rosalba coreas. Refill request refused per protocol. STOR RELATIONS ANALYST documented in this encounter Plan of Treatment Not on filedocumented as of this encounter Visit Diagnoses Not on filedocumented in this encounter
--- OUTSIDE RECORDS SUMMARY | 2019-06-24 07:07 | XMS REPORT | Encounter Summary ---
Author Author [facility] Organization [facility] Address Unknown Phone Unavailable Care Team Providers Care Drug Safety Data Management Specialist Name Role Phone Janneth Garcia RN Unavailable Unavailable Amy Alvares APRN PCP Van Mejia RN Unavailable Unavailable Jose Chaudhary DO Unavailable April Baker MD Unavailable Unavailable Mary Berry DO Unavailable Samantha Sales DO Unavailable Reason for Visit * Reason Comments Medication Refill Encounter Details Care Team Description Date Type Department Alice Harrington DO [address] [place] [address] 04/18/2019 Refill [facility] [address] [facility] [place] [address] [place] [address] Social History Date Tobacco Use [...] history available. documented as of this encounter Plan of Treatment Not on filedocumented as of this encounter Visit Diagnoses Not on filedocumented in this encounter
--- OUTSIDE RECORDS SUMMARY | 2019-06-24 07:07 | XMS REPORT ---
Author Author [facility] Address [address] [address] Care Team Providers Care Vice President Sales And Marketing Name Role Phone LEN COLLINS TRACTOR ENGINE ASSEMBLER Unavailable LEN COLLINS TRACTOR ENGINE ASSEMBLER DNP Unavailable Unavailabl e FENECH DO, RACHEL S Unavailable Unavailable SHERWIN CARLSON Unavailable Unavailable RIGOBERTO RUIZ [facility], [facility] Unavailable UnavailADELA Zuniga MD Unavailable Unavailable FENECH DO, RACHEL S Unavailable Unavailable RIGOBERTO RUIZ FAC, [facility] CCDS Unavailable UnavailSHERWIN Bocanegra Unavailable Unavailable LEN COLLINS TRACTOR ENGINE ASSEMBLER DNP Unavailable Unavailabl e ORENDER DO, RENU S Unavailable Unavailable RENU S[facility] PP Unavailable RENU S. [facility] CCM Unavailable Unavailable Unavailable Unavailable Unavailable Unavailable Unavailable Allergies No Information Medications No Information Problems Active Problems Problem Normalized Date Last Normalized Normalized Provider Fa cility Classification Problem(s) Recorded Problem Problem Sta tus Duration Residual Acquired Episodic Active SHERWIN Not Available codes; absence of BIRGIT GUERRIER (92750) unclassified both cervix (15 sources.) and uterus Inflammatory Cervicitis and Episodic Active RACHEL FENECH Not Available diseases of endocervicitis , DO (27081) female pelvic organs (15 sources.) Ovarian cyst Corpus luteum Episodic Active RACHEL FENECH Not Available (15 sources.) cyst or , DO (94652) hematoma Other Encounter for Episodic Active RACHEL FENECH Not Available screening for screening , DO (90418) suspected mammogram for conditions malignant (not mental neoplasm of disorders or breast infectious Translations: disease) (29 [ OTH SCREEN sources.) MAMMO-MALIGN NEOPLASM OF DEJAH] Endometriosis Endometriosis Chronic Active RACHEL FENECH Not Available (15 sources.) of pelvic , DO (88701) peritoneum Menstrual Excessive or Chronic Active RACHEL FENECH Not Available disorders (20 frequent , DO (00123) sources.) menstruation Translations: [ MENSTRUAL DISORDER NEC, MENSTRUAL DISORDER NEC] Other liver Fatty (change Chronic Active LEN [facility] Vi a diseases (17 of) liver, not COLLINS Brigette sources.) elsewhere Hospital - classified Jewell (29986) Adverse Fever, Episodic Active SHERWIN Not Available effects of unspecified BIRGIT GUERRIER (81975) medical drugs (15 sources.) Heart valve Mitral valve Chronic Active ALI RIGOBERTO , Not Available disorders (16 disorders FACAlfie (68614) sources.) Other female Other Episodic Active RACHEL FENECH Not A vailable genital noninflammator , DO (46355) disorders (15 y disorders of sources.) ovary, fallopian tube, and broad ligament Other ear and Other Episodic Active SHERWIN Not Avail able sense organ postprocedural BIRGIT GUERRIER (00992) disorders (15 status sources.) Other lower Other Episodic Active ADELA Not Availab le respiratory respiratory MD JEWEL (92251) disease (13 abnormalities sources.) Cardiac Palpitations Episodic Active ALI RIGOBERTO , Not Av ailable dysrhythmias FAC (85063) (28 sources.) Cancer of Papanicolaou Episodic Active RACHEL FENECH Not Available cervix (15 smear of , DO (93995) sources.) cervix with atypical squamous cells of undetermined significance (ASC-US) Residual Periodic limb Chronic Active ADELA Not Avai lable codes; movement MD JEWEL (85263) unclassified disorder (13 sources.) Immunizations Screening Episodic Active RACHEL FENECH Not Available and screening examination , DO (47318) for infectious for other disease (15 specified sources.) bacterial and spirochetal diseases Heart valve Undiagnosed Episodic Active ALI RIGOBERTO , Not A vailable disorders (16 cardiac FAC (36305) sources.) murmurs Other female Unspecified Episodic Active RACHEL FENECH No t Available genital symptom , DO (99587) disorders (15 associated sources.) with female genital organs Urinary tract Urinary tract Episodic Active SHERWIN Not Available infections (15 infection, BIRGIT GUERRIER (99577) sources.) site not specified Past or Other Problems Problem Normalized Date Last Normalized Normalized Provider Fa cility Classification Problem(s) Recorded Problem Problem Sta tus Duration Other skin Localized Episodic Completed LEN Not Availab le disorders (1 superficial COLLINS (50512) source.) swelling, mass, or lump Procedures No Information Immunizations The data below is from unstructured sourcesNo Immunization data Results The data below is from unstructured sourcesNo Known Relevant Diagnostic Tests, Laboratory Data and/or Discharge Summary.No Results dataNo Results data Vital Signs No Information Interventions No Information Plan of Treatment No Information Goals No Information Social History No Information Functional Status The data below is from unstructured sourcesNo Functional Status data Mental Status No Information Encounters Encounter Normalized Encounter Encounter Diagnosis Care Provi joss Organization Date Type 02-13-2013 Emergency department no information no name no organization name - patient visit 02-13-2013 09-09-2017 Patient encounter no information no name no or ganization name 01-22-2018 Patient encounter no information no name no or ganization name procedure 09-10-2016 Patient encounter no information no name no or ganization name procedure 02-23-2015 Patient encounter no information no name no or ganization name procedure 02-23-2014 Patient encounter no information no name no or ganization name procedure 08-23-2013 Patient encounter no information no name no or ganization name procedure 08-15-2013 Patient encounter no information no name no or ganization name procedure 02-03-2013 Patient encounter no information no name no or ganization name - procedure 02-03-2013 01-31-2013 Patient encounter no information no name no or ganization name procedure 12-27-2012 Patient encounter no information no name no or ganization name procedure 12-23-2012 Patient encounter no information no name no or ganization name procedure 11-19-2012 Patient encounter no information no name no or ganization name - procedure 11-20-2012 08-13-2012 Patient encounter no information no name no or ganization name procedure 12-12-2011 Patient encounter no information no name no or ganization name procedure no information Pre-procedural no name no organization name laboratory examination Medical Equipment No Information Payers The data below is from unstructured sources Payer Name Policy Number Subscriber Name Relationship [facility] [id number] Jaison Soria Self / Same As Patient Summary Purpose Interface Exchange Family History Family History data not found Assessments Condition Codes Effectiv e Dates DERMATITIS NOS ICD-9: 692.9 07/22/2012 FLATUL/ERUCTAT/GAS PAIN ICD-9: 787.3 07/22/2012 MALAISE AND FATIGUE ICD-9: 780.79 07/22/2012 IBS ICD-9: 564.1 013 ABDOMINAL PAIN ICD-9: 789.00 04/27/2012 ROUTINE GYNE EXAM ICD-9: V72.31 11/27/2011 ABNORMAL WEIGHT GAIN ICD-9: 783.1 11/27/2011 ROUTINE MEDICAL EXAM ICD-9: V70.0 11/27/2011 Left thyroid nodule ICD-9: 241.0 12/25/2010 Chief Complaint Reason For Visit Effective Dates Notes follow up 07/22/2012 bow el constipation 04/27/2012 Started gluten free diet the last week well woman exam (40-65 years) 11/27/2011 baseline mammogram has been done with follow up breast ultrasounds--history of benign left cyst well woman exam (18-39 years) 12/25/2010 baseline mammogram 2 years ago, hx of left breast cyst Review of System System Result Effective Dates Gastrointestinal abdominal pain [...] skin Overall: no rash, lesions 12/25/2010 None History of Present Illness Symptom Name Status [...] exercise Advance Directives No Advance Directive data Instructions Comment . Pap Done Mammo ordered [...] US Long discussion about diet and exercise Additional Source Comments This clinical document has been generated using [employer] software that has been certified by the Office of the National Coordinator for Health Information Technology (ONC 15.99.04.3023.Diam.[id number]) and the National Committee for [employer] (NCQA, as an eMeasure certified technology). FOR RECORDS PERTAINING TO PATIENTS WHO ARE OR HAVE BEEN ENROLLED IN A CHEMICAL D EPENDENCY/SUBSTANCE ABUSE PROGRAM, SOME INFORMATION MAY BE OMITTED. This clinica l summary was aggregated from multiple sources. Caution should be exercised in using it in the provision of clinical care. This summary normalizes information from multiple sources, and as a consequence, information in this document may ma terially change the coding, format and clinical context of patient data. In camila tion, data may be omitted in some cases. CLINICAL DECISIONS SHOULD BE BASED ON T HE PRIMARY CLINICAL RECORDS. [facility]. provides no warranty or guara ntee of the accuracy or completeness of information in this document.The followi information is based on time limited clinical information
--- OUTSIDE RECORDS SUMMARY | 2019-06-24 07:07 | XMS REPORT | Encounter Summary ---
Author Author [facility] Organization [facility] Address Unknown Phone Unavailable Care Team Providers Care Nozzle Worker Name Role Phone Janneth Garcia RN Unavailable Unavailable Amy Alvares APRN PCP Van Mejia RN Unavailable Unavailable Jose Chaudhary DO Unavailable April Baker MD Unavailable Unavailable Mary Berry DO Unavailable Samantha Sales DO Unavailable Reason for Visit * Reason Comments Medication Refill Encounter Details Care Team Description Date Type Department Latricia Mckinnon MD [address] [place] [address] 01/05/2019 Refill [facility] [address] [place] [address] Social History Date Tobacco Use [...]
--- OUTSIDE RECORDS SUMMARY | 2019-06-24 07:07 | XMS REPORT | Encounter Summary ---
Author Author [facility] Organization [facility] Address Unknown Phone Unavailable Care Team Providers Care Shade Cloth Finisher Name Role Phone Janneth Garcia RN Unavailable Unavailable Amy Alvares APRN PCP Van Mejia RN Unavailable Unavailable Jose Chaudhary DO Unavailable April Baker MD Unavailable Unavailable Mary Berry DO Unavailable Samantha Sales DO Unavailable Reason for Visit * Reason Comments Medication Refill Encounter Details Care Team Description Date Type Department Andreina Melendez DO [address] Orth[facility] [address] [place], [place] [id number] 02/11/[address] [facility] [address] [place] [address] Social History Date Tobacco Use [...] Notes * Telephone Encounter - Africa Alvarado 02/11/2019 11:49 AM MANAGER PACKAGE DINA 01/27/19, upcoming appointment 07/22/19; med refill completed per protocol. GER PACKAGE documented in this encounter Plan of Treatment Not on filedocumented as of this encounter Visit Diagnoses Not on filedocumented in this encounter
--- OUTSIDE RECORDS SUMMARY | 2019-06-24 07:07 | XMS REPORT | Encounter Summary ---
Author Author [facility] Organization [facility] Address Unknown Phone Unavailable Care Team Providers Care Tool Maintenance Technician Name Role Phone Janneth Garcia RN Unavailable Unavailable Amy Alvares APRN PCP Van Mejia RN Unavailable Unavailable Jose Chaudhary DO Unavailable April Baker MD Unavailable Unavailable Mary Berry DO Unavailable Samantha Sales DO Unavailable Reason for Visit * Reason Comments Abnormal Lab Follow Up Vitamin D low Encounter Details Care Team Description Date Type Department Alice Harrington DO [address] [place] [address] Abnormal Lab Follow Up (Vitamin D low ) 02/22/2019 Documentation [facility] [address] [facility] [address] [place] [address] Social History Date Tobacco Use [...] history available. documented as of this encounter Progress Notes * Alice Harrington DO - 02/22/2019 4:15 PM POULTRY INSEMINATOR Received lab results from [facility] performed on 02/19/2019. Reviewed CMP that was within normal limits other than mildly elevated AST at 40. Creatinine 0.77 with lithium level of 0.8. Vitamin D level remains low at 18. Patient renato uld continue high-dose supplementation. Refill sent to pharmacy. TRY INSEMINATOR documented in this encounter Plan of Treatment Not on filedocumented as of this encounter Visit Diagnoses Not on filedocumented in this encounter
--- OUTSIDE RECORDS SUMMARY | 2019-06-24 07:07 | XMS REPORT | Encounter Summary ---
Author Author [facility] Organization [facility] Address Unknown Phone Unavailable Care Team Providers Care Transitional Care Nurse Name Role Phone Janneth Garcia RN Unavailable Unavailable Amy Alvares APRN PCP Van Mejia RN Unavailable Unavailable Jose Chaudhary DO Unavailable April Baker MD Unavailable Unavailable Mary Berry DO Unavailable Samantha Sales DO Unavailable Reason for Visit * Reason Comments Medication Refill Encounter Details Care Team Description Date Type Department Altagracia Roche MD [address] [facility] [address] [place] [address] 05/16/[address] [facility] [address] [place] [address] Social History Date Tobacco Use [...] encounter Miscellaneous Notes * Telephone Encounter - Alice Harrington DO - 05/16/2019 2:21 PM CDT Needs updated Vitamin D level prior to continuing high dose supplementation. documented in this encounter Plan of Treatment Not on filedocumented as of this encounter Visit Diagnoses Not on filedocumented in this encounter
--- OUTSIDE RECORDS SUMMARY | 2019-06-24 07:08 | XMS REPORT | Continuity of Care Document ---
Author Organization Unknown Address Unknown Phone Unavailable Allergies Active Description Code Type Severity Reaction Onset Reported/Identified Relationship to Patient Clinical Status Yes cephalexin [id number] Drug Allerg y Mild N/A 10/29/2008 Medications There is no data. 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 02/03/2013 RACHEL RODRÍGUEZ DO Ot 620.8 NONINFL DIS OVA/ADNX NEC 02/03/2013 RACHEL RODRÍGUEZ DO Ot 795.01 PAP SMEAR CERV W ATYP SQUAMOUS CELLS OF 02/13/2013 SHERWIN CARLSON Ot 599.0 URIN TRACT INFECTION NOS 02/13/2013 SHERWIN CARLSON Ot 780.60 FEVER, UNSPECIFIED 02/13/2013 SHERWIN CARLSON Ot V45.89 POSTSURGICAL STATES NEC 02/13/2013 SHERWIN CARLSON Ot V88.01 ACQUIRED ABSENCE OF BOTH CERVIX AND UTER 02/20/2014 Ot 311 02/20/2014 Ot 314.9 02/20/2014 Ot 246.2 02/20/2014 Ot 620.2 02/20/2014 Ot 780.2 02/20/2014 Ot 786.50 02/20/2014 Ot 610.0 02/20/2014 Ot 241.0 02/20/2014 Ot V76.12 02/20/2014 LEN COLLINS SUPERVISOR BUILDING MAINTENANCE Ot 240.9 02/20/2014 LEN COLLINSP Ot 782.2 02/20/2014 FENECH DO, RACHEL S Ot V76.12 02/20/2014 FENECH DO, RACHEL S Ot 626.2 02/20/2014 FENECH DO, RACHEL S Ot 625.9 02/20/2014 FENECH DO, RACHEL S Ot 626.2 02/20/2014 FENECH DO, RACHEL S Ot 626.8 02/20/2014 FENECH DO, RACHEL S Ot V72.63 02/20/2014 FENECH DO, RACHEL S Ot V74.8 02/20/2014 RIGOBERTO RUIZ [facility], ALI FACP CCDS Ot 785.1 02/20/2014 RIGOBERTO RUIZ [facility], ALI FACP CCDS Ot 785.2 02/20/2014 RIGOBERTO RUIZ [facility], ALI FACP CCDS Ot 424.0 02/20/2014 RIGOBERTO RUIZ [facility], ALI FACP CCDS Ot 780.79 02/20/2014 RIGOBERTO RUIZ [facility], ALI FACP CCDS Ot 785.1 03/16/2014 FENECH DO, RACHEL S Ot V76.12 02/23/2015 Ot 241.0 02/23/2015 Ot V76.12 02/23/2015 LEN COLLINS SUPERVISOR BUILDING MAINTENANCE Ot 240.9 02/23/2015 LEN COLLINS SUPERVISOR BUILDING MAINTENANCE Ot 782.2 02/23/2015 FENECH DO, RACHEL S Ot V76.12 02/23/2015 FENECH DO, RACHEL S Ot 626.2 02/23/2015 FENECH DO, RACHEL S Ot 625.9 02/23/2015 FENECH DO, RACHEL S Ot 626.2 02/23/2015 FENECH DO, RACHEL S Ot 626.8 02/23/2015 FENECH DO, RACHEL S Ot V72.63 02/23/2015 FENECH DO, RACHEL S Ot V74.8 02/23/2015 RIGOBERTO RUIZ [facility], ALI FACP CCDS Ot 785.1 02/23/2015 RIGOBERTO RUIZ [facility], ALI FACP CCDS Ot 785.2 02/23/2015 RIGOBERTO RUIZ [facility], ALI FACP CCDS Ot 424.0 02/23/2015 RIGOBERTO RUIZ [facility], ALI FACP CCDS Ot 780.79 02/23/2015 RIGOBERTO RUIZ [facility], ALI FACP CCDS Ot 785.1 02/23/2015 ANNE MERINO RACHEL S Ot V76.12 03/07/2015 ANNE MERINO RACHEL Merino Ot Z12.31 09/10/2016 Ot V76.12 OTH SCREEN MAMMO- MALIGN NEOPLASM OF DEJAH 09/10/2016 LEN COLLINS SUPERVISOR BUILDING MAINTENANCE Ot 240.9 GOITER NOS 09/10/2016 DENNIS LEN L SUPERVISOR BUILDING MAINTENANCE Ot 782.2 LOCAL SUPRFICIAL SWELLNG 09/10/2016 ANNE MERINO RACHEL S Ot V76.12 OTH SCREEN MAMMO-MALIGN NEOPLASM OF DEJAH 09/10/2016 ANNE MERINO RACHEL S Ot 626.2 EXCESSIVE MENSTRUATION 09/10/2016 ANNE MERINO RACHEL S Ot 625.9 FEM GENITAL SYMPTOMS NOS 09/10/2016 ANNE MERINO RACHEL S Ot 626.2 EXCESSIVE MENSTRUATION 09/10/2016 ANNE MERINO RACHEL S Ot 626.8 MENSTRUAL DISORDER NEC 09/10/2016 ANNE MERINO RACHEL S Ot V72.63 PRE-PROCEDURAL LABORATORY EXAMINATION 09/10/2016 ANNE MERINO RACHEL S Ot V74.8 SCREEN-BACTERIAL DIS NEC 09/10/2016 RIGOBERTO RUIZ FACC, ALI FACP CCDS Ot 785.1 PALPITATIONS 09/10/2016 RIGOBERTO RUIZ FACAlfie, ALI FACP CCDS Ot 785.2 CARDIAC MURMURS NEC 09/10/2016 RIGOBERTO RUIZ FACC, ALI FACP CCDS Ot 424.0 MITRAL VALVE DISORDER 09/10/2016 RIGOBERTO RUIZ FACC, ALI FACP CCDS Ot 780.79 OTH MALAISE FATIGUE 09/10/2016 RIGOBERTO BALC, ALI FACP CCDS Ot 785.1 PALPITATIONS 09/10/2016 ANNE DO RACHEL S Ot V76.12 OTH SCREEN MAMMO-MALIGN NEOPLASM OF DEJAH 09/10/2016 ANNE DO RACHEL S Ot Z12.31 ENCNTR SCREEN MAMMOGRAM FOR MALIGNANT NE 09/11/2016 ANNE RACHEL MERINO S Ot Z12.31 ENCNTR SCREEN MAMMOGRAM FOR MALIGNANT NE 09/24/2016 ANNE MERINO RACHEL S Ot Z12.31 ENCNTR SCREEN MAMMOGRAM FOR MALIGNANT NE 09/09/2017 LEN COLLINS SUPERVISOR BUILDING MAINTENANCE Ot K76.0 FATTY (CHANGE OF) LIVER, NOT ELSEWHERE C 01/25/2018 RACHEL RODRÍGUEZ DO S Ot Z12.31 ENCNTR SCREEN MAMMOGRAM FOR MALIGNANT NE 02/27/2018 ANNE MERINO RACHEL Merino Ot V76.12 OTH SCREEN MAMMO-MALIGN NEOPLASM OF DEJAH 02/27/2018 ANNE MERINO RACHEL S Ot 626.2 EXCESSIVE MENSTRUATION 02/27/2018 ANNE MERINO RACHEL S Ot 625.9 FEM GENITAL SYMPTOMS NOS 02/27/2018 ANNE MERINO RACHEL S Ot 626.2 EXCESSIVE MENSTRUATION 02/27/2018 ANNE MERINO RACHEL S Ot 626.8 MENSTRUAL DISORDER NEC 02/27/2018 ANNE MERINO RACHEL S Ot V72.63 PRE-PROCEDURAL LABORATORY EXAMINATION 02/27/2018 ANNE MERINO RACHEL S Ot V74.8 SCREEN-BACTERIAL DIS NEC 02/27/2018 RIGOBERTO RUIZ FACC, ALI FACP CCDS Ot 785.1 PALPITATIONS 02/27/2018 RIGOBERTO RUIZ FACC, ALI FACP CCDS Ot 785.2 CARDIAC MURMURS NEC 02/27/2018 RIGOBERTO RUIZ FACC, ALI FACP CCDS Ot 424.0 MITRAL VALVE DISORDER 02/27/2018 RIGOBERTO BALC, ALI FACP CCDS Ot 780.79 OTH MALAISE FATIGUE 02/27/2018 RIGOBERTO RUIZ FACC, ALI FACP CCDS Ot 785.1 PALPITATIONS 02/27/2018 ANNE MERINO RACHEL Merino Ot V76.12 OTH SCREEN MAMMO-MALIGN NEOPLASM OF DEJAH 02/27/2018 ANNE MERINO RACHEL S Ot Z12.31 ENCNTR SCREEN MAMMOGRAM FOR MALIGNANT NE 02/27/2018 ANNE MERINORACHEL S Ot Z12.31 ENCNTR SCREEN MAMMOGRAM FOR MALIGNANT NE 02/27/2018 LEN COLLINS SUPERVISOR BUILDING MAINTENANCE Ot K76.0 FATTY (CHANGE OF) LIVER, NOT ELSEWHERE C 02/27/2018 ANNE MERINO RACHEL S Ot Z12.31 ENCNTR SCREEN MAMMOGRAM FOR MALIGNANT NE 02/28/2018 ANNE MERINO RACHEL S Ot V76.12 OTH SCREEN MAMMO-MALIGN NEOPLASM OF DEJAH 02/28/2018 ANNE MERINO RACHEL S Ot 626.2 EXCESSIVE MENSTRUATION 02/28/2018 ANNE MERINORACHEL S Ot 625.9 FEM GENITAL SYMPTOMS NOS 02/28/2018 ANNE MERINORACHEL S Ot 626.2 EXCESSIVE MENSTRUATION 02/28/2018 ANNE MERINORACHEL S Ot 626.8 MENSTRUAL DISORDER NEC 02/28/2018 ANNE RACHEL MERINO S Ot V72.63 PRE-PROCEDURAL LABORATORY EXAMINATION 02/28/2018 ANNE MERINO RACHEL S Ot V74.8 SCREEN-BACTERIAL DIS NEC 02/28/2018 RIGOBERTO RUIZ FACC, ALI FACP CCDS Ot 785.1 PALPITATIONS 02/28/2018 RIGOBERTO BAL, ALI FACP CCDS Ot 785.2 CARDIAC MURMURS NEC 02/28/2018 RIGOBERTO RUIZ FACC, ALI FACP CCDS Ot 424.0 MITRAL VALVE DISORDER 02/28/2018 RIGOBERTO RUIZ FACC, ALI FACP CCDS Ot 780.79 OTH MALAISE FATIGUE 02/28/2018 RIGOBERTO RUIZ FACC, ALI FACP CCDS Ot 785.1 PALPITATIONS 02/28/2018 ANNE RACHEL MERINO S Ot V76.12 OTH SCREEN MAMMO-MALIGN NEOPLASM OF DEJAH 02/28/2018 ANNE RACHEL MERINO Ot Z12.31 ENCNTR SCREEN MAMMOGRAM FOR MALIGNANT NE 02/28/2018 ANNE RACHEL MERINO S Ot Z12.31 ENCNTR SCREEN MAMMOGRAM FOR MALIGNANT NE 02/28/2018 LEN COLLINS SUPERVISOR BUILDING MAINTENANCE Ot K76.0 FATTY (CHANGE OF) LIVER, NOT ELSEWHERE C 02/28/2018 ANNE RACHEL MERINO Ot Z12.31 ENCNTR SCREEN MAMMOGRAM FOR MALIGNANT NE 02/28/2018 ANNE RACHEL MERINO Ot V76.12 OTH SCREEN MAMMO-MALIGN NEOPLASM OF DEJAH 02/28/2018 ANNE RACHEL MERINO S Ot 626.2 EXCESSIVE MENSTRUATION 02/28/2018 RACHEL RODRÍGUEZ DO S Ot 625.9 FEM GENITAL SYMPTOMS NOS 02/28/2018 ANGELIATHERON RACHEL MERINO S Ot 626.2 EXCESSIVE MENSTRUATION 02/28/2018 RACHEL RODRÍGUEZ DO S Ot 626.8 MENSTRUAL DISORDER NEC 02/28/2018 ANNE RACHEL MERINO S Ot V72.63 PRE-PROCEDURAL LABORATORY EXAMINATION 02/28/2018 ANNE RACHEL MERINO S Ot V74.8 SCREEN-BACTERIAL DIS NEC 02/28/2018 RIGOBERTO RUIZ FACC, ALI FACP CCDS Ot 785.1 PALPITATIONS 02/28/2018 RIGOBERTO RUIZ FACC, LEONEL FACP CCDS Ot 785.2 CARDIAC MURMURS NEC 02/28/2018 RIGOBERTO RUIZ FACC, LEONEL FACP CCDS Ot 424.0 MITRAL VALVE DISORDER 02/28/2018 RIGOBERTO RUIZ FACC, LEONEL FACP CCDS Ot 780.79 OTH MALAISE FATIGUE 02/28/2018 RIGOBERTO RUIZ FACC, LEONEL FACP CCDS Ot 785.1 PALPITATIONS 02/28/2018 ANNE MERINO RACHEL S Ot V76.12 OTH SCREEN MAMMO-MALIGN NEOPLASM OF DEJAH 02/28/2018 ANGELIAECH DO RACHEL S Ot Z12.31 ENCNTR SCREEN MAMMOGRAM FOR MALIGNANT NE 02/28/2018 FENECH DORACHEL S Ot Z12.31 ENCNTR SCREEN MAMMOGRAM FOR MALIGNANT NE 02/28/2018 LEN COLLINS SUPERVISOR BUILDING MAINTENANCE Ot K76.0 FATTY (CHANGE OF) LIVER, NOT ELSEWHERE C 02/28/2018 ANNE MERINO RACHEL S Ot Z12.31 ENCNTR SCREEN MAMMOGRAM FOR MALIGNANT NE 02/28/2018 RACHEL RODRÍGUEZ DO S Ot V76.12 OTH SCREEN MAMMO-MALIGN NEOPLASM OF DEJAH 02/28/2018 RACHEL RODRÍGUEZ DO S Ot 626.2 EXCESSIVE MENSTRUATION 02/28/2018 RACHEL RODRÍGUEZ DO S Ot 625.9 FEM GENITAL SYMPTOMS NOS 02/28/2018 RACHEL RODRÍGUEZ DO S Ot 626.2 EXCESSIVE MENSTRUATION 02/28/2018 ANNE MERINO RACHEL S Ot 626.8 MENSTRUAL DISORDER NEC 02/28/2018 RACHEL RODRÍGUEZ DO S Ot V72.63 PRE-PROCEDURAL LABORATORY EXAMINATION 02/28/2018 RACHEL RODRÍGUEZ DO S Ot V74.8 SCREEN-BACTERIAL DIS NEC 02/28/2018 RIGOBERTO RUIZ FACC, LEONEL FACP CCDS Ot 785.1 PALPITATIONS 02/28/2018 RIGOBERTO RUIZ FACC, LEONEL FACP CCDS Ot 785.2 CARDIAC MURMURS NEC 02/28/2018 RIGOBERTO RUIZ FACC, LEONEL FACP CCDS Ot 424.0 MITRAL VALVE DISORDER 02/28/2018 RIGOBERTO RUIZ FACC, LEONEL FACP CCDS Ot 780.79 OTH MALAISE FATIGUE 02/28/2018 RIGOBERTO RUIZ FACC, LEONEL FACP CCDS Ot 785.1 PALPITATIONS 02/28/2018 RACHEL RODRÍGUEZ DO S Ot V76.12 OTH SCREEN MAMMO-MALIGN NEOPLASM OF DEJAH 02/28/2018 ANNE MERINO RACHEL S Ot Z12.31 ENCNTR SCREEN MAMMOGRAM FOR MALIGNANT NE 02/28/2018 ANNE MERINO RACHEL S Ot Z12.31 ENCNTR SCREEN MAMMOGRAM FOR MALIGNANT NE 02/28/2018 LEN COLLINS SUPERVISOR BUILDING MAINTENANCE Ot K76.0 FATTY (CHANGE OF) LIVER, NOT ELSEWHERE C 02/28/2018 ANNE MERINO RACHEL S Ot Z12.31 ENCNTR SCREEN MAMMOGRAM FOR MALIGNANT NE 03/01/2018 ANNE MERINO RACHEL S Ot V76.12 OTH SCREEN MAMMO-MALIGN NEOPLASM OF DEJAH 03/01/2018 ANNE MERINO RACHEL S Ot 626.2 EXCESSIVE MENSTRUATION 03/01/2018 ANNE MERINO RACHEL S Ot 625.9 FEM GENITAL SYMPTOMS NOS 03/01/2018 ANNE MERINO RACHEL S Ot 626.2 EXCESSIVE MENSTRUATION 03/01/2018 ANNE MERINO RACHEL S Ot 626.8 MENSTRUAL DISORDER NEC 03/01/2018 ANNE MERINO RACHEL S Ot V72.63 PRE-PROCEDURAL LABORATORY EXAMINATION 03/01/2018 ANNE MERINO RACHEL S Ot V74.8 SCREEN-BACTERIAL DIS NEC 03/01/2018 RIGOBERTO RUIZ FACC, ALI FACP CCDS Ot 785.1 PALPITATIONS 03/01/2018 RIGOBERTO RUIZ FACC, ALI FACP CCDS Ot 785.2 CARDIAC MURMURS NEC 03/01/2018 RIGOBERTO RUIZ FACC, ALI FACP CCDS Ot 424.0 MITRAL VALVE DISORDER 03/01/2018 RIGOBERTO RUIZ FACC, ALI FACP CCDS Ot 780.79 OTH MALAISE FATIGUE 03/01/2018 RIGOBERTO RUIZ FACC, ALI FACP CCDS Ot 785.1 PALPITATIONS 03/01/2018 ANNE MERINO RACHEL S Ot V76.12 OTH SCREEN MAMMO-MALIGN NEOPLASM OF DEJAH 03/01/2018 ANNE MERINO RACHEL S Ot Z12.31 ENCNTR SCREEN MAMMOGRAM FOR MALIGNANT NE 03/01/2018 ANNE MERINO RACHEL S Ot Z12.31 ENCNTR SCREEN MAMMOGRAM FOR MALIGNANT NE 03/01/2018 LEN COLLINS SUPERVISOR BUILDING MAINTENANCE Ot K76.0 FATTY (CHANGE OF) LIVER, NOT ELSEWHERE C 03/01/2018 RACHEL RODRÍGUEZ DO Ot Z12.31 ENCNTR SCREEN MAMMOGRAM FOR MALIGNANT NE 03/02/2018 ANNE MERINO RACHEL Merino Ot V76.12 OTH SCREEN MAMMO-MALIGN NEOPLASM OF DEJAH 03/02/2018 ANNE MERINO RACHEL S Ot 626.2 EXCESSIVE MENSTRUATION 03/02/2018 ANNE MERINO RACHEL S Ot 625.9 FEM GENITAL SYMPTOMS NOS 03/02/2018 ANNE MERINO RACHEL S Ot 626.2 EXCESSIVE MENSTRUATION 03/02/2018 ANNE MERINO RACHEL S Ot 626.8 MENSTRUAL DISORDER NEC 03/02/2018 ANNE MERINO RACHEL Merino Ot V72.63 PRE-PROCEDURAL LABORATORY EXAMINATION 03/02/2018 ANNE MERINO RACHEL Merino Ot V74.8 SCREEN-BACTERIAL DIS NEC 03/02/2018 RIGOBERTO RUIZ FACC, ALI FACP CCDS Ot 785.1 PALPITATIONS 03/02/2018 RIGOBERTO RUIZ FACC, ALI FACP CCDS Ot 785.2 CARDIAC MURMURS NEC 03/02/2018 RIGOBERTO BALC, ALI FACP CCDS Ot 424.0 MITRAL VALVE DISORDER 03/02/2018 RIGOBERTO RUIZ FACC, ALI FACP CCDS Ot 780.79 OTH MALAISE FATIGUE 03/02/2018 RIGOBERTO BALC, ALI FACP CCDS Ot 785.1 PALPITATIONS 03/02/2018 ANNE MERINO RACHEL Merino Ot V76.12 OTH SCREEN MAMMO-MALIGN NEOPLASM OF DEJAH 03/02/2018 ANNE MERINO RACHEL S Ot Z12.31 ENCNTR SCREEN MAMMOGRAM FOR MALIGNANT NE 03/02/2018 ANNE MERINO RACHEL Wilber Ot Z12.31 ENCNTR SCREEN MAMMOGRAM FOR MALIGNANT NE 03/02/2018 LEN COLLINS SUPERVISOR BUILDING MAINTENANCE Ot K76.0 FATTY (CHANGE OF) LIVER, NOT ELSEWHERE C 03/02/2018 ANNE MERINO RACHEL Merino Ot Z12.31 ENCNTR SCREEN MAMMOGRAM FOR MALIGNANT NE 03/02/2018 ANNE MERINO RACHEL Merino Ot V76.12 OTH SCREEN MAMMO-MALIGN NEOPLASM OF DEJAH 03/02/2018 ANNE MERINO RACHEL S Ot 626.2 EXCESSIVE MENSTRUATION 03/02/2018 ANNE MERINORACHEL S Ot 625.9 FEM GENITAL SYMPTOMS NOS 03/02/2018 ANNE MERINO RACHEL S Ot 626.2 EXCESSIVE MENSTRUATION 03/02/2018 ANNE MERINO RACHEL S Ot 626.8 MENSTRUAL DISORDER NEC 03/02/2018 ANNE MERINO RACHEL S Ot V72.63 PRE-PROCEDURAL LABORATORY EXAMINATION 03/02/2018 ANNE MERINO RACHEL Merino Ot V74.8 SCREEN-BACTERIAL DIS NEC 03/02/2018 RIGOBERTO RUIZ FACC, ALI FACP CCDS Ot 785.1 PALPITATIONS 03/02/2018 RIGOBERTO RUIZ FACAlfie, ALI FACP CCDS Ot 785.2 CARDIAC MURMURS NEC 03/02/2018 RIGOBERTO RUIZ FACC, ALI FACP CCDS Ot 424.0 MITRAL VALVE DISORDER 03/02/2018 RIGOBERTO RUIZ FACC, ALI FACP CCDS Ot 780.79 OTH MALAISE FATIGUE 03/02/2018 RIGOBERTO RUIZ FACC, ALI FACP CCDS Ot 785.1 PALPITATIONS 03/02/2018 ANNE MERINO RACHEL Merino Ot V76.12 OTH SCREEN MAMMO-MALIGN NEOPLASM OF DEJAH 03/02/2018 ANNE MERINO RACHEL S Ot Z12.31 ENCNTR SCREEN MAMMOGRAM FOR MALIGNANT NE 03/02/2018 ANNE MERINO RACHEL S Ot Z12.31 ENCNTR SCREEN MAMMOGRAM FOR MALIGNANT NE 03/02/2018 LEN COLLINS SUPERVISOR BUILDING MAINTENANCE Ot K76.0 FATTY (CHANGE OF) LIVER, NOT ELSEWHERE C 03/02/2018 ANNE MERINO RACHEL S Ot Z12.31 ENCNTR SCREEN MAMMOGRAM FOR MALIGNANT NE 03/02/2018 ANNE MERINO RACHEL Merino Ot V76.12 OTH SCREEN MAMMO-MALIGN NEOPLASM OF DEJAH 03/02/2018 ANNE MERINO RACHEL S Ot 626.2 EXCESSIVE MENSTRUATION 03/02/2018 ANNE MERINO RACHEL S Ot 625.9 FEM GENITAL SYMPTOMS NOS 03/02/2018 ANNE MERINO RACHEL S Ot 626.2 EXCESSIVE MENSTRUATION 03/02/2018 ANNE MERINO RACHEL S Ot 626.8 MENSTRUAL DISORDER NEC 03/02/2018 ANNE MERINO RACHEL S Ot V72.63 PRE-PROCEDURAL LABORATORY EXAMINATION 03/02/2018 ANNE MERINO RACHEL S Ot V74.8 SCREEN-BACTERIAL DIS NEC 03/02/2018 RIGOBERTO RIUZ FACC, ALI FACP CCDS Ot 785.1 PALPITATIONS 03/02/2018 RIGOBERTO RUIZ FACC, ALI FACP CCDS Ot 785.2 CARDIAC MURMURS NEC 03/02/2018 RIGOBERTO RUIZ FACC, LEONEL FACP CCDS Ot 424.0 MITRAL VALVE DISORDER 03/02/2018 RIGOBERTO RUIZ FACC, LEONEL FACP CCDS Ot 780.79 OTH MALAISE FATIGUE 03/02/2018 RIGOBERTO RUIZ FACC, LEONEL FACP CCDS Ot 785.1 PALPITATIONS 03/02/2018 ANNE DO RACHEL S Ot V76.12 OTH SCREEN MAMMO-MALIGN NEOPLASM OF DEJAH 03/02/2018 FENECH DO, RACHEL S Ot Z12.31 ENCNTR SCREEN MAMMOGRAM FOR MALIGNANT NE 03/02/2018 FENECH DO, RACHEL S Ot Z12.31 ENCNTR SCREEN MAMMOGRAM FOR MALIGNANT NE 03/02/2018 LEN COLLINS SUPERVISOR BUILDING MAINTENANCE Ot K76.0 FATTY (CHANGE OF) LIVER, NOT ELSEWHERE C 03/02/2018 FENECH DO RACHEL S Ot Z12.31 ENCNTR SCREEN MAMMOGRAM FOR MALIGNANT NE 03/02/2018 ANGELIATHERON DO RACHEL S Ot V76.12 OTH SCREEN MAMMO-MALIGN NEOPLASM OF DEJAH 03/02/2018 ANGELIATHERON DO RACHEL S Ot 626.2 EXCESSIVE MENSTRUATION 03/02/2018 ANNE MERINO RACHEL S Ot 625.9 FEM GENITAL SYMPTOMS NOS 03/02/2018 ANGELIATHERON DO RACHEL S Ot 626.2 EXCESSIVE MENSTRUATION 03/02/2018 ANGELIATHERON DO RACHEL S Ot 626.8 MENSTRUAL DISORDER NEC 03/02/2018 ANGELIATHERON DO RACHEL S Ot V72.63 PRE-PROCEDURAL LABORATORY EXAMINATION 03/02/2018 RACHEL RODRÍGUEZ DO S Ot V74.8 SCREEN-BACTERIAL DIS NEC 03/02/2018 RIGOBERTO RUIZ FACC, LEONEL FACP CCDS Ot 785.1 PALPITATIONS 03/02/2018 RIGOBERTO RUIZ FACC, LEONEL FACP CCDS Ot 785.2 CARDIAC MURMURS NEC 03/02/2018 RIGOBERTO RUIZ FACC, LEONEL FACP CCDS Ot 424.0 MITRAL VALVE DISORDER 03/02/2018 RIGOBERTO RUIZ FACC, LEONEL FACP CCDS Ot 780.79 OTH MALAISE FATIGUE 03/02/2018 RIGOBERTO RUIZ FACC, LEONEL FACP CCDS Ot 785.1 PALPITATIONS 03/02/2018 ANGELIAECH DO RACHEL S Ot V76.12 OTH SCREEN MAMMO-MALIGN NEOPLASM OF DEJAH 03/02/2018 RACHEL RODRÍGUEZ DO S Ot Z12.31 ENCNTR SCREEN MAMMOGRAM FOR MALIGNANT NE 03/02/2018 RACHEL RODRÍGUEZ DO S Ot Z12.31 ENCNTR SCREEN MAMMOGRAM FOR MALIGNANT NE 03/02/2018 LEN COLLINS SUPERVISOR BUILDING MAINTENANCE Ot K76.0 FATTY (CHANGE OF) LIVER, NOT ELSEWHERE C 03/02/2018 RACHEL RODRÍGUEZ DO S Ot Z12.31 ENCNTR SCREEN MAMMOGRAM FOR MALIGNANT NE 03/02/2018 ANNE MERINO, RACHEL S Ot V76.12 OTH SCREEN MAMMO-MALIGN NEOPLASM OF DEJAH 03/02/2018 ANNE MERINO RACHEL S Ot 626.2 EXCESSIVE MENSTRUATION 03/02/2018 ANNE MERINO RACHEL S Ot 625.9 FEM GENITAL SYMPTOMS NOS 03/02/2018 ANNE MERINO RACHEL S Ot 626.2 EXCESSIVE MENSTRUATION 03/02/2018 ANNE MERINO RACHEL S Ot 626.8 MENSTRUAL DISORDER NEC 03/02/2018 ANNE MERINO RACHEL S Ot V72.63 PRE-PROCEDURAL LABORATORY EXAMINATION 03/02/2018 ANNE MERINO RACHEL S Ot V74.8 SCREEN-BACTERIAL DIS NEC 03/02/2018 RIGOBERTO RUIZ FACC, ALI FACP CCDS Ot 785.1 PALPITATIONS 03/02/2018 RIGOBERTO RUIZ FACC, ALI FACP CCDS Ot 785.2 CARDIAC MURMURS NEC 03/02/2018 RIGOBERTO RUIZ FACC, ALI FACP CCDS Ot 424.0 MITRAL VALVE DISORDER 03/02/2018 RIGOBERTO RUIZ FACC, ALI FACP CCDS Ot 780.79 OTH MALAISE FATIGUE 03/02/2018 RIGOBERTO BALC, ALI FACP CCDS Ot 785.1 PALPITATIONS 03/02/2018 ANNE MERINO RACHEL S Ot V76.12 OTH SCREEN MAMMO-MALIGN NEOPLASM OF DEJAH 03/02/2018 ANNE MERINO RACHEL S Ot Z12.31 ENCNTR SCREEN MAMMOGRAM FOR MALIGNANT NE 03/02/2018 ANNE MERINO RACHEL S Ot Z12.31 ENCNTR SCREEN MAMMOGRAM FOR MALIGNANT NE 03/02/2018 DENNISNAPOLEONLEN Bhavana SUPERVISOR BUILDING MAINTENANCE Ot K76.0 FATTY (CHANGE OF) LIVER, NOT ELSEWHERE C 03/02/2018 ANNE MERINO, RACHEL S Ot Z12.31 ENCNTR SCREEN MAMMOGRAM FOR MALIGNANT NE 04/08/2018 ANNE MERINORACHEL Ot V76.12 OTH SCREEN MAMMO-MALIGN NEOPLASM OF DEJAH 04/08/2018 ANNE MERINORACHEL Ot 626.2 EXCESSIVE MENSTRUATION 04/08/2018 ANNE MERINORACHEL Ot 625.9 FEM GENITAL SYMPTOMS NOS 04/08/2018 ANNE MERINORACHEL Ot 626.2 EXCESSIVE MENSTRUATION 04/08/2018 ANNE MERINORACHEL Ot 626.8 MENSTRUAL DISORDER NEC 04/08/2018 ANNE MERINORACHEL Ot V72.63 PRE-PROCEDURAL LABORATORY EXAMINATION 04/08/2018 ANNE MERINORACHEL Ot V74.8 SCREEN-BACTERIAL DIS NEC 04/08/2018 RIGOBERTO RUIZ FACC, ALI FACP CCDS Ot 785.1 PALPITATIONS 04/08/2018 RIGOBERTO RUIZ FACC, ALI FACP CCDS Ot 785.2 CARDIAC MURMURS NEC 04/08/2018 RIGOBERTO RUIZ FACC, ALI FACP CCDS Ot 424.0 MITRAL VALVE DISORDER 04/08/2018 RIGOBERTO RUIZ FACC, ALI FACP CCDS Ot 780.79 OTH MALAISE FATIGUE 04/08/2018 RIGOBERTO BALC, ALI FACP CCDS Ot 785.1 PALPITATIONS 04/08/2018 ANNE RACHEL MERINO Ot V76.12 OTH SCREEN MAMMO-MALIGN NEOPLASM OF DEJAH 04/08/2018 ANNE RACHEL MERINO Ot Z12.31 ENCNTR SCREEN MAMMOGRAM FOR MALIGNANT NE 04/08/2018 ANNE RACHEL MERINO Ot Z12.31 ENCNTR SCREEN MAMMOGRAM FOR MALIGNANT NE 04/08/2018 LEN COLLINS SUPERVISOR BUILDING MAINTENANCE Ot K76.0 FATTY (CHANGE OF) LIVER, NOT ELSEWHERE C 04/08/2018 ANNE MERINORACHEL Ot Z12.31 ENCNTR SCREEN MAMMOGRAM FOR MALIGNANT NE 04/08/2018 ANNE RACHEL MERINO Ot V76.12 OTH SCREEN MAMMO-MALIGN NEOPLASM OF DEJAH 04/08/2018 ANNE RACHEL MERINO Ot 626.2 EXCESSIVE MENSTRUATION 04/08/2018 ANNE RACHEL MERINO Ot 625.9 FEM GENITAL SYMPTOMS NOS 04/08/2018 ANNE MERINORACHEL Ot 626.2 EXCESSIVE MENSTRUATION 04/08/2018 FENECH DO, RACHEL S Ot 626.8 MENSTRUAL DISORDER NEC 04/08/2018 ANNE MERINO RCAHEL S Ot V72.63 PRE-PROCEDURAL LABORATORY EXAMINATION 04/08/2018 ANNE MERINO RACHEL S Ot V74.8 SCREEN-BACTERIAL DIS NEC 04/08/2018 RIGOBERTO RUIZ FACC, ALI FACP CCDS Ot 785.1 PALPITATIONS 04/08/2018 RIGOBERTO RUIZ FACC, ALI FACP CCDS Ot 785.2 CARDIAC MURMURS NEC 04/08/2018 RIGOBERTO RUIZ FACC, ALI FACP CCDS Ot 424.0 MITRAL VALVE DISORDER 04/08/2018 RIGOBERTO RUIZ FACC, ALI FACP CCDS Ot 780.79 OTH MALAISE FATIGUE 04/08/2018 RIGOBERTO RUIZ FACC, ALI FACP CCDS Ot 785.1 PALPITATIONS 04/08/2018 ANNE DO RACHEL S Ot V76.12 OTH SCREEN MAMMO-MALIGN NEOPLASM OF DEJAH 04/08/2018 ANNE RACHEL MERINO S Ot Z12.31 ENCNTR SCREEN MAMMOGRAM FOR MALIGNANT NE 04/08/2018 ANNE RACHEL MERINO S Ot Z12.31 ENCNTR SCREEN MAMMOGRAM FOR MALIGNANT NE 04/08/2018 LEN COLLINS SUPERVISOR BUILDING MAINTENANCE Ot K76.0 FATTY (CHANGE OF) LIVER, NOT ELSEWHERE C 04/08/2018 ANNE RACHEL MERINO S Ot Z12.31 ENCNTR SCREEN MAMMOGRAM FOR MALIGNANT NE 06/03/2018 ANNE RACHEL MERINO S Ot V76.12 OTH SCREEN MAMMO-MALIGN NEOPLASM OF DEJAH 06/03/2018 ANNE RACHEL MERINO S Ot 626.2 EXCESSIVE MENSTRUATION 06/03/2018 ANNE RACHEL MERINO S Ot 625.9 FEM GENITAL SYMPTOMS NOS 06/03/2018 ANNE RACHEL MERINO S Ot 626.2 EXCESSIVE MENSTRUATION 06/03/2018 ANNE RACHEL MERINO S Ot 626.8 MENSTRUAL DISORDER NEC 06/03/2018 ANNE RACHEL MERINO S Ot V72.63 PRE-PROCEDURAL LABORATORY EXAMINATION 06/03/2018 ANNE RACHEL MERINO S Ot V74.8 SCREEN-BACTERIAL DIS NEC 06/03/2018 RIGOBERTO RUIZ FACC, ALI FACP CCDS Ot 785.1 PALPITATIONS 06/03/2018 RIGOBERTO RUIZ FACC, ALI FACP CCDS Ot 785.2 CARDIAC MURMURS NEC 06/03/2018 RIGOBERTO RUIZ FACC, LEONEL FACP CCDS Ot 424.0 MITRAL VALVE DISORDER 06/03/2018 RIGOBERTO RUIZ FACC, LEONEL FACP CCDS Ot 780.79 OTH MALAISE FATIGUE 06/03/2018 RIGOBERTO RUIZ FACC, LEONEL FACP CCDS Ot 785.1 PALPITATIONS 06/03/2018 ANNE MERINO RACHEL S Ot V76.12 OTH SCREEN MAMMO-MALIGN NEOPLASM OF DEJAH 06/03/2018 ANNE DO, RACHEL S Ot Z12.31 ENCNTR SCREEN MAMMOGRAM FOR MALIGNANT NE 06/03/2018 ANNE DO, RACHEL S Ot Z12.31 ENCNTR SCREEN MAMMOGRAM FOR MALIGNANT NE 06/03/2018 LEN COLLINS SUPERVISOR BUILD[employer] MAINTENANCE Ot K76.0 FATTY (CHANGE OF) LIVER, NOT ELSEWHERE C 06/03/2018 ANNE DO RACHEL S Ot Z12.31 ENCNTR SCREEN MAMMOGRAM FOR MALIGNANT NE 06/16/2018 ANNE DO RACHEL S Ot 626.2 EXCESSIVE MENSTRUATION 06/16/2018 ANNE DO RACHEL S Ot 625.9 FEM GENITAL SYMPTOMS NOS 06/16/2018 ANNE DO RACHEL S Ot 626.2 EXCESSIVE MENSTRUATION 06/16/2018 ANNE MERINO RACHEL S Ot 626.8 MENSTRUAL DISORDER NEC 06/16/2018 ANNE DO RACHEL S Ot V72.63 PRE-PROCEDURAL LABORATORY EXAMINATION 06/16/2018 ANNE DO RACHEL S Ot V74.8 SCREEN-BACTERIAL DIS NEC 06/16/2018 RIGOBERTO RUIZ FACC, LEONEL FACP CCDS Ot 785.1 PALPITATIONS 06/16/2018 RIGOBERTO RUIZ FACC, LEONEL FACP CCDS Ot 785.2 CARDIAC MURMURS NEC 06/16/2018 RIGOBERTO RUIZ FACC, LEONEL FACP CCDS Ot 424.0 MITRAL VALVE DISORDER 06/16/2018 RIGOBERTO RUIZ FACC, LEONEL FACP CCDS Ot 780.79 OTH MALAISE FATIGUE 06/16/2018 RIGOBERTO RUIZ FACC, LEONEL FACP CCDS Ot 785.1 PALPITATIONS 06/16/2018 ANNE DO RACHEL S Ot V76.12 OTH SCREEN MAMMO-MALIGN NEOPLASM OF DEJAH 06/16/2018 ANNE DO RACHEL S Ot Z12.31 ENCNTR SCREEN MAMMOGRAM FOR MALIGNANT NE 06/16/2018 FENECH DO, RACHEL S Ot Z12.31 ENCNTR SCREEN MAMMOGRAM FOR MALIGNANT NE 06/16/2018 DENNIS LEN Bhavana SUPERVISOR BUILDING MAINTENANCE Ot K76.0 FATTY (CHANGE OF) LIVER, NOT ELSEWHERE C 06/16/2018 FENECH DO, RACHEL S Ot Z12.31 ENCNTR SCREEN MAMMOGRAM FOR MALIGNANT NE 08/20/2018 RIGOBERTO RUIZ FAC, ALI FACP CCDS Ot 785.1 PALPITATIONS 08/20/2018 RIGOBERTO RUIZ FAC, ALI FACP CCDS Ot 785.2 CARDIAC MURMURS NEC 08/20/2018 RIGOBERTO MD FAC, ALI FACP CCDS Ot 424.0 MITRAL VALVE DISORDER 08/20/2018 RIGOBERTO RUIZ [facility], ALI FACP CCDS Ot 780.79 OTH MALAISE FATIGUE 08/20/2018 RIGOBERTO RUIZ FAC, ALI FACP CCDS Ot 785.1 PALPITATIONS 08/20/2018 ANNE DO, RACHEL S Ot V76.12 OTH SCREEN MAMMO-MALIGN NEOPLASM OF DEJAH 08/20/2018 ANNE DO, RACHEL S Ot Z12.31 ENCNTR SCREEN MAMMOGRAM FOR MALIGNANT NE 08/20/2018 FENECH DO, RACHEL S Ot Z12.31 ENCNTR SCREEN MAMMOGRAM FOR MALIGNANT NE 08/20/2018 LEN COLLINS SUPERVISOR BUILDING MAINTENANCE Ot K76.0 FATTY (CHANGE OF) LIVER, NOT ELSEWHERE C 08/20/2018 ANNE DO, RACHEL S Ot Z12.31 ENCNTR SCREEN MAMMOGRAM FOR MALIGNANT NE 06/21/2019 LOUISE PIKE MD Ot Z01.818 ENCOUNTER FOR OTHER PREPROCEDURAL EXAMIN 06/21/2019 LOUISE PIKE MD Ot Z11. 59 ENCOUNTER FOR SCREENING FOR OTHER VIRAL Procedures There is no data. Results Test Result Range Coronavirus SARS-CoV-2 SO 2018 - 0 13:50 Coronavirus Ab [Units/volume] in Serum Negative Negative Encounters ACCT No. Visit Date/Time Discharge Status Pt. Type Provider Facility Loc./Unit Complaint [id number] 06/20/2019 05:40:00 020 16:14:00 DIS Outpatient LOUISE PIKE MD [facility] PREOP COLONOSCOPY [id number] 05/13/2019 08:30:00 020 23:59:59 CLS Preadmit SHAHZAD RUIZ, LOUISE Trevino [facility] ENDO SCREENING/FAMILY HX COL ON CA [id number] 06/22/2018 14:00:00 019 23:59:59 CLS Preadmit LEANA RUIZ, WINIFRED Bates [facility] RAD RADICULOPATHY O F LUMBOSACRAL SPINE [id number] 01/22/2018 10:45:00 018 23:59:59 CLS Outpatient ANGELIATHERON MERINO RACHEL Wilber [facility] RAD SCREENING [id number] 09/11/2017 10:34:00 018 23:59:59 CLS Preadmit LEN COLLINS [facility] CARD RUQ PAIN [id number] 09/09/2017 12:28:00 018 23:59:59 CLS Preadmit RACHEL RODRÍGUEZ DO Via [facility] RAD SCREENING [id number] 09/09/2017 10:02:00 018 23:59:59 CLS Outpatient LEN COLLINS [employer] [facility] RAD DYSPEPSIA [id number] 09/10/2016 10:42:00 017 23:59:59 CLS Outpatient ANGELIATHERON MERINO RACHEL Wilber [facility] RAD Z12.31 SCREENING [id number] 02/23/2015 12:57:00 016 23:59:59 CLS Outpatient RACHEL RODRÍGUEZ DO [facility] RAD ROUTINE MAMMO SCREENIN G [id number] 02/23/2014 11:19:00 015 23:59:59 CLS Outpatient RACHEL RODRÍGUEZ DO [facility] RAD SCREENING [id number] 08/23/2013 09:33:00 014 23:59:59 CLS Outpatient RIGOBERTO RUIZ FACC, LEONEL JASSO CC DS [facility] CARD PALPITATION S [id number] 08/15/2013 08:53:00 014 23:59:59 CLS Outpatient RIGOBERTO RUIZ FACC, LEONEL JASSO CC DS [facility] CARD PALPTITATIO NS [id number] 02/13/2013 15:07:00 19:55:00 DIS Emergency SHERWIN CARLSON [facility] ER POST OP FEVER [id number] 02/03/2013 06:05:00 18:30:00 DIS Outpatient ANNE MERINO RACHEL Wilber [facility] SDC MENORRHAGIA;FYSFUNCTIO NAL UTERINE BLEEDING [id number] 01/31/2013 08:04:00 23:59:59 CLS Outpatient ANNE MERINO RACHEL Wilber [facility] PREOP MENORRHAGIA;DYSFUNCTIO NAL UTERINE BLEEDING; [id number] 12/27/2012 14:40:00 23:59:59 CLS Outpatient ANGELIATHERON MERINO RACHEL Wilber [facility] RAD PELVIC PAIN [id number] 12/23/2012 09:18:00 23:59:59 CLS Outpatient ANNE DO RACHEL Wilber [facility] RAD SCREENING [id number] 11/19/2012 20:00:00 06:15:00 DIS Outpatient ADELA HOLLOWAY MD [facility] SLEEP INDIGO,RESTLESS LE G SYNDROME,UNEXPLAINED DROWSINESS [id number] 08/13/2012 11:25:00 23:59:59 CLS Outpatient LEN COLLINS [facility] RAD NODULE NECK, LE FT LOBE THYROMEGLIA [id number] 02/20/2014 16:26:00 Document Registration [id number] 02/20/2014 16:26:00 Document Registration [id number] 12/12/2011 09:57:00 Document Registration [id number] 12/27/2010 13:02:00 Document Registration [id number] 02/14/2009 09:55:00 Document Registration [id number] 11/10/2008 11:23:00 Document Registration [id number] 11/03/2008 10:55:00 Document Registration [id number] 10/31/2008 10:24:00 Document Registration [id number] 10/25/2008 13:05:00 Document Registration
[2019-06-24] MEDS ORDERED: LACTATED RINGERS 1,000 ML IV STA (07:24)
[2019-06-24 07:30] VITALS: BP 117/78
[2019-06-24] MEDS ORDERED: LIDOCAINE JELLY 2% 6 ML SYRINGE ONE (07:30)
[2019-06-24] MEDS ORDERED: LIDOCAINE JELLY 2% 6 ML SYRINGE MM PRN (07:30)
--- NOTE | 2019-06-24 07:55 | Pre-Op Note & Conscious Sedat ---
Pre-Operative Progress Note H&P Reviewed The H&P was reviewed, patient examined and no changes noted. Date H&P Reviewed: June 24, 2019 Time H&P Reviewed: 07:40 Conscious Sedation Pre-Proced ASA Score 2 For ASA 3 and 4: Consider anesthesia and medical clearance. Also, for patients with a history of failed moderate sedation consider anesthesia. Airway Lungs Heart ASA score ASA 1: a normal healthy patient ASA 2: a patient with a mild systemic disease (mid diabetes, controlled hypertension, obesity ASA 3: a patient with a severe systemic disease that limits activity (angina, COPD, prior Myocardial infarction) ASA 4: a patient with an incapacitating disease that is a constant threat to life (CHF, renal failure) ASA 5: a moribund patient not expected to survive 24 hrs. (ruptured aneurysm) ASA 6: a declared brain- patient whose organs are being harvested. For emergent operations, add the letter E after the classification Mallampati Classification Grade 2 Sedation Plan Analgesia, Amnesia, Plan communicated to team members, Discussed options with patient/fam, Discussed risks with patient/fam The patient is an appropriate candidate to undergo the planned procedure, sedation, and anesthesia. The patient immediately re-assessed prior to indication. LOUISE PIKE MD June 24, 2019 07:55
[2019-06-24] MEDS ORDERED: PROPOFOL INJECTION 50 ML IV ONE (08:10)
[2019-06-24 08:30] VITALS: BP_SYST 90; BP_SYST 95; BP_DIAS 53; BP_DIAS 55
--- NOTE | 2019-06-24 08:49 | Anesthesia-General Post-Op ---
MAC Patient Condition Mental Status/LOC: Same as Preop Cardiovascular: Satisfactory Nausea/Vomiting: Absent Respiratory: Satisfactory Pain: Controlled Complications: Absent Post Op Complications Complications None Follow Up Care/Instructions Patient Instructions None needed. Anesthesiology Discharge Order Discharge Order Patient is doing well, no complaints, stable vital signs, no apparent adverse anesthesia problems. No complications reported per nursing. ALYSSA HAYDEN CRNA June 24, 2019 08:49
[2019-06-24 13:20] VITALS: BP 110/71
[2019-06-24 13:22] VITALS: BP 110/71
--- NOTE | 2019-06-24 18:08 | OPERATIVE REPORT ---
DATE OF SERVICE: COLONOSCOPY SUMMARY INDICATION FOR THE PROCEDURE: Screening colonoscopy, family history for colon cancer. DESCRIPTION OF PROCEDURE: The patient was placed in the left lateral decubitus position. Prior to undergoing colonoscopy, digital rectal evaluation was performed. Anal sphincter tone was normal. Perianal reflexes intact. No abnormalities were noted on digital inspection of anal canal or distal rectal vault. The colonoscope was then inserted into the rectum and under direct visualization advanced to cecum. The cecum was identified by identification of the esophageal cecal strap. Photographic documentation was obtained. Careful inspection was made as colonoscope withdrawn. The patient tolerated the procedure well and the quality of prep was good. FINDINGS: There was no evidence for internal or external hemorrhoids in the rectum. Sigmoid colon, descending colon, splenic flexure, transverse colon, hepatic flexure, ascending colon and cecum were unremarkable with no evidence for neoplasia or diverticular disease. ASSESSMENT: Normal colonoscopy to cecum. Considering family history, I would advocate consideration for repeat screening colonoscopy in 5 years. I thank you for the referral of this pleasant lady. Job ID: [id number] DocumentID: [id number] Dictated Date: 06/24/2019 12:14:20 [employer] Date: 06/24/2019 18:08:14 Dictated By: LOUISE PIKE MD
== END 2019-06-24 09:13 | disposition home or self-care (01) ==
LOC: ENDO 06:57
PROVIDERS: ATTEND Internal Medicine
DX: Z12.11 Encounter for screening for malignant neoplasm of colon (principal); E11.9 Type 2 diabetes mellitus without complications; E03.8 Other specified hypothyroidism; I10 Essential (primary) hypertension; F33.40 Major depressive disorder, recurrent, in remission, unspecified; Z90.89 Acquired absence of other organs; Z88.1 Allergy status to other antibiotic agents; Z90.710 Acquired absence of both cervix and uterus; Z79.899 Other long term (current) drug therapy; Z87.19 Personal history of other diseases of the digestive system; Z80.0 Family history of malignant neoplasm of digestive organs

== ENCOUNTER → 2019-07-08 | Outpatient (CLI) | payer BC ==
[~2019-07-08] MED LIST changes: -MIDAZOLAM 2 MG/2 ML (VERSED) VIAL ONE; -PROPOFOL INJECTION 50 ML IV ONE
--- NOTE | 2019-07-08 10:34 | Diagnostic Imaging Report ---
INDICATION: Routine screening. Comparison is made with prior mammogram from 01/22/2018 and 09/10/2016. 2-D and 3-D bilateral screening mammography was performed with CAD. Scattered fibroglandular densities are identified bilaterally. Circumscribed nodule in the right breast retroareolar region approximately 3 cm from the nipple has developed but no other masses are identified. No malignant-appearing microcalcifications are seen. Axillae are unremarkable. IMPRESSION: BI-RADS 0 Development of circumscribed nodule retroareolar right breast, perhaps a cyst. Further evaluation with ultrasound is recommended. ACR BI-RADS Category 0: Incomplete. (Needs additional imaging evaluation). Result letter will be mailed to the patient. Note: At least 10% of breast cancer is not imaged by mammography. Dictated by: Dictated on workstation # [id number]
== END ==
LOC: RAD 09:13
PROVIDERS: ATTEND Obstetrics & Gynecology
DX: Z12.31 Encounter for screening mammogram for malignant neoplasm of breast (principal)
CPT/HCPCS: 77063; 77067

== ENCOUNTER → 2019-07-14 | Outpatient (CLI) | payer BC ==
--- NOTE | 2019-07-14 14:41 | Diagnostic Imaging Report ---
INDICATION: Right breast nodule. Study is performed for further evaluation. Correlation is made with recent screening mammogram from 07/08/2019. Sonographic interrogation of the retroareolar region was performed. There is a simple appearing cyst in the retroareolar location measuring 11 mm x 5 mm x 6 mm. This likely accounts for the circumscribed density noted mammographically. No solid mass is detected. IMPRESSION: BI-RADS Category 2 Simple cyst retroareolar right breast accounting for the mammographic density. The patient may return to routine annual screening mammography. ACR BI-RADS Category 2: Benign findings. Dictated by: Dictated on workstation # [id number]
== END ==
LOC: RAD 12:47
PROVIDERS: ATTEND Nurse Practitioner Family
DX: N60.01 Solitary cyst of right breast (principal)

== ENCOUNTER → 2020-11-16 | Outpatient (CLI) | payer BC ==
[~2020-11-16] MED LIST changes: -CETI10TA21 PO; +CETI10TA49 PO; +ESCI20TA39 PO; -ESCI20TA45 PO
--- NOTE | 2020-11-16 13:49 | Diagnostic Imaging Report ---
INDICATION: Routine screening. COMPARISON is made with prior mammograms from 07/08/2019 and 01/22/2018. 2-D and 3-D bilateral screening mammography was performed with CAD. Both breasts are heterogeneously dense, limiting the sensitivity of mammography. The parenchymal pattern is stable. No mass or malignant-appearing microcalcifications are seen. Axillae are unremarkable. IMPRESSION: BI-RADS Category 1 No mammographic features suspicious for malignancy are identified. ACR BI-RADS Category 1: Negative. Result letter will be mailed to the patient. Note: At least 10% of breast cancer is not imaged by mammography. Dictated by: Dictated on workstation # [id number]
== END ==
LOC: RAD 10:31
PROVIDERS: ATTEND Obstetrics & Gynecology
DX: Z12.31 Encounter for screening mammogram for malignant neoplasm of breast (principal)
CPT/HCPCS: 77063; 77067

== ENCOUNTER → 2021-06-13 | Outpatient (CLI) | payer BC, OTHER ==
[~2021-06-13] MED LIST changes: +GADOTERATE 0.5 MMOL/ML (CLARISCAN) 20 ML VIAL IV ONE
--- NOTE | 2021-06-13 12:20 | Diagnostic Imaging Report ---
PROCEDURE: MR imaging of the brain with and without contrast. TECHNIQUE: Multiplanar, multisequence MR imaging of the brain was performed with and without contrast. INDICATION: Balance issues. Dropping things. Fall 3 weeks ago. COMPARISON: 10/25/2008. FINDINGS: No acute ischemia, mass, or hemorrhage. No abnormal enhancement. A small amount of focal T2 hyperintense signal is seen in the periventricular and subcortical white matter. The ventricles, cortical sulci, and basilar cisterns are symmetric and unremarkable. The sellar and suprasellar regions have a normal appearance. The brainstem and posterior fossa are unremarkable. The paranasal sinuses and mastoid air cells demonstrate normal signal characteristics. The globes and orbits are symmetric and unremarkable. The scalp and calvarium have a normal appearance. IMPRESSION: 1. No acute ischemia, mass, or hemorrhage. No abnormal enhancement. 2. Small amount of focal T2 hyperintense signal in the periventricular and subcortical white matter. Findings can be seen with sequelae of migraine and/or chronic microvascular disease. Dictated by: Dictated on workstation # [id number]
== END ==
LOC: RAD 10:15
PROVIDERS: ATTEND Nurse Practitioner Family
DX: Z00.01 Encounter for general adult medical examination with abnormal findings (principal); M62.81 Muscle weakness (generalized); E74.39 Other disorders of intestinal carbohydrate absorption; G44.89 Other headache syndrome; E03.8 Other specified hypothyroidism; R42 Dizziness and giddiness; R25.1 Tremor, unspecified; R90.82 White matter disease, unspecified; R29.6 Repeated falls
CPT/HCPCS: 70553

== ENCOUNTER → 2022-09-12 | Outpatient (CLI) | payer BC ==
[~2022-09-12] MED LIST changes: -GADOTERATE 0.5 MMOL/ML (CLARISCAN) 20 ML VIAL IV ONE
--- NOTE | 2022-09-12 13:25 | Diagnostic Imaging Report ---
Indication: Bilateral digital 2-D and 3-D screening with CAD. The current study was also evaluated with a Computer Aided Detection (CAD) system. COMPARISON: 12/06, 07/14/19 and 01/2018 FINDINGS: density 2 No breast mass, spiculated lesion, architectural distortion, suspicious calcifications or findings to suggest development of malignancy. IMPRESSION: BI-RADS Category 1 ACR BI-RADS Category 1: Negative. Result letter will be mailed to the patient. Note: At least 10% of breast cancer is not imaged by mammography. Dictated by: Dictated on workstation # [id number]
== END ==
LOC: RAD 07:27
PROVIDERS: ATTEND Nurse Practitioner Women's Health
DX: Z12.31 Encounter for screening mammogram for malignant neoplasm of breast (principal)
CPT/HCPCS: 77063; 77067